=== PATIENT | female | born 1925 | race African-American/Black ===

== ENCOUNTER 2016-09-22 08:33 | Outpatient (CLI) | payer MEDICARE, OTHER ==
[2016-09-22 09:41] LABS: Anion Gap 11 mmol/L (10-20); BUN (Urea Nitrogen) 19 mg/dL (9.8-20.1); Calc. Creatinine Clearance 0 mL/min (70-130); Calcium 8.1 mg/dL (7.8-10.44); Carbon Dioxide 20 mmol/L (23-31); Cardiac Risk 3.5 (Less than 4.5); Chloride 114 mmol/L (98-107); Cholesterol 97 mg/dL (< 200 Desired); Estimated GFR-MDRD 70; Glucose 93 mg/dL (83-110); HDL Cholesterol 28 mg/dL (>60 Neg Risk); LDL Cholesterol, Calculated 60 mg/dL; Potassium 4.2 mmol/L (3.5-5.1); Sodium 141 mmol/L (136-145); Triglycerides 47 mg/dL (Less than 150)
[2016-09-22 09:45] LABS: Hemoglobin A1c 5.7 % (4.0-6.0)
[2016-09-22 11:29] LABS: #Monocytes 0.4 thou/uL (0.11-0.59); #Neutrophils 3.3 thou/uL (1.40-6.50); %Basophils 0.3 % (0.0-1.0); %Eosinophils 0.7 % (0.0-10.0); %Lymphocytes 21.7 % (21.0-51.0); %Monocytes 7.7 % (0.0-10.0); %Neutrophils 69.7 % (42.0-75.0); Hemoglobin 6.3 g/dL (12.0-16.0); Hypochromia MODERATE=16-30 cells (100X) (0-5/hpf); MDiff Complete? YES; Mean Corpuscular Hemoglobin 23.6 pg (27.0-31.0); Mean Corpuscular Volume 78.8 fl (81.0-99.0); Mean Platelet Volume 8.1 fL (7.4-10.4); Microcytosis SLIGHT = 6-15 cells (100X) (0-5/hpf); Ovalocytes SLIGHT = 2-5 cells (100X) (0-1/hpf); Platelet Count 214 thou/uL (130-400); RBC Distribution Width 16.4 % (11.5-14.5); Red Blood Cell (RBC) Count 2.67 mill/uL (4.20-5.40); Reflex for Review?? NO; Target Cells SLIGHT = 2-5 cells (100X) (0-1/hpf); White Blood Cell (WBC) Count 4.7 thou/uL (4.8-10.8)
== END 2016-09-22 08:34 | disposition home or self-care (01) ==
LOC: NAV LABSP 08:33
PROVIDERS: ATTEND Internal Medicine
DX: E78.5 Hyperlipidemia, unspecified (principal); K59.00 Constipation, unspecified; E11.9 Type 2 diabetes mellitus without complications
CPT/HCPCS: 36415; 80048; 80061; 83036; 85025

== ENCOUNTER 2016-09-23 14:20 | Observation (INO) | payer MEDICARE, OTHER ==
[2016-09-23 15:48] VITALS: BMI 14.3
[2016-09-23] MEDS ORDERED: Guaifenesin DM 100-10/5 ML UDCUP PO PRN (16:59)
[2016-09-23] MEDS ORDERED: Acetaminophen 325 MG TAB PO PRN (16:59)
[2016-09-23] MEDS ORDERED: traMADol HCl 50 MG TAB PO PRN (16:59)
[2016-09-23] MEDS ORDERED: Ondansetron ODT 4 MG TAB PO PRN (16:59)
[2016-09-23] MEDS ORDERED: Bisacodyl 10 MG SUPP PR PRN (16:59)
[2016-09-23] MEDS ORDERED: Loperamide HCl 2 MG CAP PO PRN (16:59)
[2016-09-23 17:36] LABS: White Blood Cell (WBC) Count 4.7 thou/uL (4.8-10.8)
[2016-09-23 17:37] LABS: Hemoglobin 6.9 g/dL (12.0-16.0); Mean Corpuscular HGB CONC 30.3 g/dL (32.0-36.0); Mean Corpuscular Hemoglobin 23.8 pg (27.0-31.0); Mean Corpuscular Volume 78.6 fL (81.0-99.0); Mean Platelet Volume 8.1 fL (7.4-10.4); Platelet Count 246 thou/uL (130-400); RBC Distribution Width 16.8 % (11.5-14.5)
[2016-09-23 18:22] LABS: ALT (SGPT) 7 U/L (0-55); AST (SGOT) 11 U/L (5-34); Albumin 2.6 g/dL (3.4-4.8); Alkaline Phosphatase 65 U/L (40-150); Anion Gap 15 mmol/L (10-20); BUN (Urea Nitrogen) 18 mg/dL (9.8-20.1); Bilirubin, Total 0.2 mg/dL (0.2-1.2); Calc. Creatinine Clearance 20 mL/min (70-130); Calcium 8.3 mg/dL (7.8-10.44); Carbon Dioxide 19 mmol/L (23-31); Chloride 112 mmol/L (98-107); Estimated GFR-MDRD 70; Globulin 3.6 g/dL (2.4-3.5); Glucose 113 mg/dL (83-110); Potassium 4.6 mmol/L (3.5-5.1); Protein, Total 6.2 g/dL (5.8-8.1); Sodium 141 mmol/L (136-145)
[2016-09-23] MEDS: Famotidine 20 MG TAB PO SCH (20:44)
[2016-09-23] MEDS: Ascorbic Acid 500 mg Chewable Tablet PO SCH (20:44)
[2016-09-23] MEDS: Carvedilol 6.25 MG TAB PO SCH (20:45)
[2016-09-23] MEDS ORDERED: Non-Formulary Item 1 EACH (Amino Acids/Protein Hydrolys [Pro-Stat Awc Liquid Packet] 30 M PO SCH (21:00)
[2016-09-23] MEDS ORDERED: Atorvastatin Calcium 20 MG TAB PO SCH (21:00)
[2016-09-24 06:46] LABS: Hemoglobin 9.3 g/dL (12.0-16.0)
[2016-09-24] MEDS: Carvedilol 6.25 MG TAB PO SCH (08:55)
[2016-09-24] MEDS: Famotidine 20 MG TAB PO SCH (08:55)
[2016-09-24] MEDS: Ascorbic Acid 500 mg Chewable Tablet PO SCH (08:55)
[2016-09-24] MEDS ORDERED: Clopidogrel Bisulfate 75 MG TAB PO SCH (09:00)
[2016-09-24] MEDS ORDERED: Lisinopril 20 MG TAB PO SCH (09:00)
[2016-09-24 15:02] VITALS: BP 174/80; TEMP 98.8
== END 2016-09-24 16:15 ==
LOC: NAV ACUTE 14:20
PROVIDERS: ADMIT Internal Medicine; ATTEND Internal Medicine
PROC: 30233N1 Transfusion of Nonautologous Red Blood Cells into Peripheral Vein, Percutaneous Approach (ICD-10-PCS; 2016-09-23)
PROC: 30233N1 Transfusion of Nonautologous Red Blood Cells into Peripheral Vein, Percutaneous Approach (ICD-10-PCS; principal; 2016-09-24)
DX: D64.9 Anemia, unspecified (principal)
CPT/HCPCS: 36416; 36430; 80053; 85014; 85018; 85027; 86850; 86900; 86901; G0378; P9016

== ENCOUNTER 2016-10-06 19:59 | Inpatient (IN) | payer MEDICARE, OTHER ==
[2016-10-06 20:56] LABS: ALT (SGPT) Less than 6 U/L (0-55); AST (SGOT) 8 U/L (5-34); Albumin 2.5 g/dL (3.4-4.8); Alkaline Phosphatase 69 U/L (40-150); Anion Gap 15 mmol/L (10-20); BUN (Urea Nitrogen) 21 mg/dL (9.8-20.1); Bilirubin, Total 0.6 mg/dL (0.2-1.2); Calc. Creatinine Clearance 0 mL/min (70-130); Calcium 8.7 mg/dL (7.8-10.44); Carbon Dioxide 19 mmol/L (23-31); Chloride 112 mmol/L (98-107); Estimated GFR-MDRD 48; Globulin 3.5 g/dL (2.4-3.5); Glucose 120 mg/dL (83-110); Potassium 3.7 mmol/L (3.5-5.1); Sodium 142 mmol/L (136-145)
[2016-10-06 20:57] LABS: Bilirubin Negative (Negative); Blood, Urine Negative (Negative); Clarity Clear (Clear); Glucose, Urine (Dipstick) Negative (Negative); Leukocyte Negative (Negative); Nitrite Negative (Negative); Protein, Urine (Dipstick) 100 mg/dL (Neg-Trace); pH, Urine 5.5 (5.0-9.0)
[2016-10-06 21:01] LABS: Anisocytosis SLIGHT = 6-15 cells (100X) (0-5/hpf); Band 1 % (5-11); Hemoglobin 8.6 g/dL (12.0-16.0); Hypochromia SLIGHT = 6-15 cells (100X) (0-5/hpf); Large Platelets SLIGHT; Lymphocytes 11 % (21-51); MDiff Complete? YES; Mean Corpuscular HGB CONC 31.2 g/dL (32.0-36.0); Mean Corpuscular Hemoglobin 24.4 pg (27.0-31.0); Mean Platelet Volume 8.2 fL (7.4-10.4); Microcytosis SLIGHT = 6-15 cells (100X) (0-5/hpf); Monocytes 6 % (0-10); Neutrophil 81 % (42-75); PLT Morphology Comment Appears Adequate; Platelet Count 188 thou/uL (130-400); Poikilocytosis SLIGHT = 6-15 cells (100X) (0-5/hpf); Polychromasia SLIGHT = 2-3 cells (100X) (0-2/hpf); RBC Distribution Width 17.2 % (11.5-14.5); Red Blood Cell (RBC) Count 3.53 mill/uL (4.20-5.40); White Blood Cell (WBC) Count 5.9 thou/uL (4.8-10.8)
--- NOTE | 2016-10-06 21:02 | RAD ---
SINGLE VIEW OF THE CHEST: Indication: Cough and congestion. Comparison: 04-02-16 FINDINGS: There are patchy opacities within the left upper lobe which may reflect changes of pneumonia. Due to positioning, the patient's head and neck obscures the right upper lobe. No definite pleural effusio n is evident. Heart size is similar appearing. No definite acute osseous abnormalities are evident. There is healed deformity involving the proximal right humerus. IMPRESSION: 1. Patchy opacities within the left upper lobe may reflect changes of developing pneumonia. Radiogra phic follow up to resolution is recommended. 2. Limitations to the scan as above. POS: [facility]
[2016-10-06 21:03] LABS: Bacteria/HPF 2+ HPF (None Seen); RBC/HPF 0-3 HPF (0-3); WBC/HPF None Seen HPF (0-3)
[2016-10-06 23:05] VITALS: BMI 16.4
[2016-10-06] MEDS ORDERED: Acetaminophen 325 MG TAB PO PRN (23:32)
[2016-10-06] MEDS ORDERED: Bisacodyl 10 MG SUPP PR PRN (23:33)
[2016-10-06] MEDS ORDERED: Loperamide HCl 2 MG CAP PO PRN (23:37)
[2016-10-06] MEDS ORDERED: traMADol HCl 50 MG TAB PO PRN (23:40)
[2016-10-07 07:04] LABS: #Lymphocytes 0.6 thou/uL (1.20-3.40); #Monocytes 0.4 thou/uL (0.11-0.59); #Neutrophils 4.4 thou/uL (1.40-6.50); %Basophils 0.4 % (0.0-1.0); %Eosinophils 0.3 % (0.0-10.0); %Lymphocytes 10.6 % (21.0-51.0); %Monocytes 6.8 % (0.0-10.0); %Neutrophils 81.9 % (42.0-75.0); Hemoglobin 9.5 g/dL (12.0-16.0); Mean Corpuscular HGB CONC 30.5 g/dL (32.0-36.0); Mean Corpuscular Hemoglobin 24.3 pg (27.0-31.0); Mean Corpuscular Volume 79.7 fl (81.0-99.0); Mean Platelet Volume 7.8 fL (7.4-10.4); Platelet Count 155 thou/uL (130-400); RBC Distribution Width 17.6 % (11.5-14.5); Red Blood Cell (RBC) Count 3.89 mill/uL (4.20-5.40); White Blood Cell (WBC) Count 5.4 thou/uL (4.8-10.8)
[2016-10-07 07:20] LABS: Anion Gap 18 mmol/L (10-20); BUN (Urea Nitrogen) 23 mg/dL (9.8-20.1); Calc. Creatinine Clearance 22 mL/min (70-130); Calcium 8.7 mg/dL (7.8-10.44); Carbon Dioxide 20 mmol/L (23-31); Chloride 111 mmol/L (98-107); Estimated GFR-MDRD 47; Glucose 88 mg/dL (83-110); Potassium 4.6 mmol/L (3.5-5.1); Sodium 144 mmol/L (136-145)
[2016-10-07] MEDS ORDERED: Acetaminophen 325 MG TAB PO PRN (07:34)
[2016-10-07] MEDS ORDERED: Bisacodyl 10 MG SUPP PR PRN (07:38)
[2016-10-07] MEDS ORDERED: Loperamide HCl 2 MG CAP PO PRN (07:55)
[2016-10-07] MEDS: Ascorbic Acid 500 mg Chewable Tablet PO SCH ×2 (08:47→21:12)
[2016-10-07] MEDS: Carvedilol 6.25 MG TAB PO SCH ×2 (08:47→21:12)
[2016-10-07] MEDS: Multivitamin W/ Minerals 1 TAB PO SCH (08:48)
[2016-10-07] MEDS: Lisinopril 20 MG TAB PO SCH (08:48)
[2016-10-07] MEDS: traMADol HCl 50 MG TAB PO PRN ×2 (08:51→21:12)
[2016-10-07] MEDS: Clopidogrel Bisulfate 75 MG TAB PO SCH (08:51)
[2016-10-07] MEDS: Milk Of Magnesia 30 ML UDCUP PO SCH ×2 (08:53→21:50)
[2016-10-07] MEDS: Famotidine 20 MG TAB PO SCH ×2 (08:53→21:13)
[2016-10-07] MEDS ORDERED: Multivitamins CHEW w/Iron Tablet PO SCH (09:00)
[2016-10-07] MEDS ORDERED: Clopidogrel Bisulfate 75 MG TAB PO SCH (09:00)
[2016-10-07] MEDS ORDERED: Carvedilol 3.125 MG TAB PO SCH (09:00)
[2016-10-07] MEDS ORDERED: Ascorbic Acid 500 mg Chewable Tablet PO SCH (09:00)
[2016-10-07] MEDS ORDERED: Lisinopril 20 MG TAB PO SCH (09:00)
[2016-10-07] MEDS ORDERED: Famotidine 20 MG TAB PO SCH ×2 (09:00)
[2016-10-07] MEDS ORDERED: Sodium Chloride 0.9% 10 ML ONE (17:48)
[2016-10-07] MEDS: Sodium Chloride 0.9% 1,000 ML IV SCH (17:49)
[2016-10-07] MEDS ORDERED: Simvastatin 40 MG TAB PO SCH (21:00)
[2016-10-07] MEDS: Atorvastatin Calcium 20 MG TAB PO SCH (21:13)
--- NOTE | 2016-10-08 00:12 | HP ---
DATE OF ADMISSION: 10/06/2016 HISTORY OF PRESENT ILLNESS: The patient is an 89-year-old black female with a history of poor oral intake who [facility] with an episode of coughing after eating and with the find ing of possible aspiration pneumonia on chest x-ray in the emergency room by ER physician. She was found to have normal white count, saturation, but did appear to be in some mild distress and had low grade fever. Her chest x-ray was read out by radiologist, is developing pneumonia. 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 Garnica and treated with wound care with offloading at the jail, but foul smelling odor is emanating from the wounds and there appears to be a pur ulent discharge. She has been eating fairly well. The patient has had a very poor appetite for the last several years. Family has refused PEG tube placement and been feeding her at the jail . She has also had recurrent admissions for urinary tract infection and also for recurrent anemia a nd dehydration with renal failure. The family again has refused colonoscopy and EGD, but has agreed to occasional transfusions, the last being several months ago. PAST MEDICAL HISTORY: Remarkable for ischemic heart disease in the past, but there is no evidence o f recurrent ischemia for the last several years, gastroesophageal reflux, type 2 diabetes with occas ional hypoglycemia. CURRENT MEDICATIONS: Include Tylenol 650 every 4 hours, vitamin C 500 twice daily, aspirin 81 daily , Dulcolax as needed, carvedilol 6.25 twice daily, Plavix 75 daily, Pepcid 20 twice daily, ferrous s ulfate 300 mg daily, lisinopril 20 daily, simvastatin 40 daily, tramadol as needed for pain. She has the above-mentioned history of allergy to PENICILLIN as being restricted from NSAIDs because of recurrent anemia secondary to GI bleed. PAST SURGICAL HISTORY: Positive for distant right hip open reduction internal fixation. 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 She has been told in the past that she is at risk for aspiration, but the patient's fa aniya understand this and wishes comfort feeding. SOCIAL HISTORY: She has been living in the jail for 13 years secondary to the inability to maintain ADLs. REVIEW OF SYSTEMS: Unobtainable. PHYSICAL EXAMINATION: GENERAL: Patient is an elderly black female who appears in no acute distress, awake, but aphasic, n ot responsive. VITAL SIGNS: Showed to have a temperature of 100.5, pulse 86, respirations 16, O2 sats 96%, blood p ressure 101/53. HEENT: Pupils are equal, round, and react to light and accommodation. Sclerae are anicteric. Conj unctivae pale. Oral mucous membranes well hydrated. NECK: Supple, no nodes or masses. JVP is not elevated. LUNGS: Clear. CARDIAC: Regular rhythm, no gallops or murmurs. ABDOMEN: Soft, nontender with no masses or organomegaly. SKIN/EXTREMITIES: Show the patient to be contracted both in the knees and hips. There are stage II to stage III decubitus over the lateral malleolus lateral foot and lateral fifth metatarsal with fo ul smelling purulent discharge, but no apparent pedal pulses are absent. NEUROLOGIC: Cranial nerves appear to be intact except for the possible dysphagia and aphasia, appea rs to be normal, sensation to pinprick. The patient does not move however, and is contracted. LABORATORY AND X-RAY FINDINGS: Show white count 5900, hematocrit 27, hemoglobin 8.6. Sodium 142, p otassium 3.7, chloride 112, bicarbonate 19, BUN 21, creatinine 1.27, glucose 120. Lactate is 1.1, a lbumin 2.5. Urinalysis within normal limits, only 4-6 squamous cells. Chest x-ray shows the above- mentioned left upper lobe infiltrate. ASSESSMENT: 1. Resolving left upper lobe infiltrate, most likely due to aspiration pneumonia, persistent dyspha jevon and expressive aphasia secondary to old CVA. Comfort feeding per the patient's family request. 2. Possible infection of stage II to III decubitus of the right foot. PLAN: Wound culture silver dressing, offloading of the right foot. Continue Levaquin 500 IV daily. Continue feedings per family, started on normal saline at 75 an hour, repeat base met profile in t he a.m. The patient is not to be resuscitated at family's request.
[2016-10-08] MEDS: Sodium Chloride 0.9% 1,000 ML IV SCH ×2 (06:03→20:40)
[2016-10-08] MEDS: Ondansetron HCl/PF 4 MG/2 ML Vial IVP PRN (08:20)
[2016-10-08] MEDS: Acetaminophen 325 MG TAB PO PRN (08:22)
[2016-10-08] MEDS: Multivitamin W/ Minerals 1 TAB PO SCH (08:23)
[2016-10-08] MEDS: Ascorbic Acid 500 mg Chewable Tablet PO SCH ×2 (08:23→21:41)
[2016-10-08] MEDS: Lisinopril 20 MG TAB PO SCH (08:23)
[2016-10-08] MEDS: Famotidine 20 MG TAB PO SCH ×2 (08:23→21:41)
[2016-10-08] MEDS: Carvedilol 6.25 MG TAB PO SCH ×3 (08:23→21:42)
[2016-10-08] MEDS: Clopidogrel Bisulfate 75 MG TAB PO SCH (08:23)
[2016-10-08] MEDS: traMADol HCl 50 MG TAB PO PRN (08:24)
--- NOTE | 2016-10-08 21:03 | PRG ---
DATE OF SERVICE: 10/08/2016 SUBJECTIVE: Patient feels same, awake, not responsive verbally, been eating for the family appears to be in no distress. OBJECTIVE: Vital signs show Accu-Cheks range from 86-130, blood pressure is 140/67, temperature 97. 5, pulse 74, respirations 18, O2 sats 98%. Lungs are clear. Cardiac examination shows regular rhyt hm. Right foot is bandaged with stage III decubitus lateral aspect to the foot. Physical therapy and wound care may feels that this is something that is not going to resolve and re commends being seen by Wound Care physician and possible amputation. ASSESSMENT: 1. Stage III decubitus of right foot. We will discuss with family and surgical referral, wound car e referral, and possible CT angio. 2. Resolving aspiration pneumonia with stable vital signs on Levaquin. 3. Stable cerebrovascular accident with dysphagia and aphasia and contractures. PLAN: Discussed with family, transfer [facility] for surgical consul and/or Wound Care consult.
[2016-10-08] MEDS: Atorvastatin Calcium 20 MG TAB PO SCH (21:40)
[2016-10-09] MEDS: Multivitamin W/ Minerals 1 TAB PO SCH (08:59)
[2016-10-09] MEDS: Ascorbic Acid 500 mg Chewable Tablet PO SCH ×2 (08:59→20:58)
[2016-10-09] MEDS: traMADol HCl 50 MG TAB PO PRN ×3 (08:59→20:59)
[2016-10-09] MEDS: Famotidine 20 MG TAB PO SCH ×2 (08:59→20:58)
[2016-10-09] MEDS: Clopidogrel Bisulfate 75 MG TAB PO SCH (08:59)
[2016-10-09] MEDS: Acetaminophen 325 MG TAB PO PRN ×2 (08:59→20:58)
[2016-10-09] MEDS: Lisinopril 20 MG TAB PO SCH (09:00)
[2016-10-09] MEDS: Sodium Chloride 0.9% 1,000 ML IV SCH (09:01)
[2016-10-09] MEDS: Carvedilol 6.25 MG TAB PO SCH (09:01)
[2016-10-09] MEDS: Ondansetron HCl/PF 4 MG/2 ML Vial IVP PRN (09:16)
[2016-10-09] MEDS: Atorvastatin Calcium 20 MG TAB PO SCH (20:58)
[2016-10-10] MEDS: Sodium Chloride 0.9% 1,000 ML IV SCH ×2 (04:46→14:11)
--- NOTE | 2016-10-10 07:26 | PRG ---
DATE OF SERVICE: 10/10/2016 Ms. Collado is an 89-year-old elderly black female from [facility] that apparently aspirated and was found to have a left upper lobe pneumonia. She also has a history of poor oral intake secondary to some aphasia, increasing dementia and old cerebrovascular accident. VITAL SIGNS: Vital signs this morning reveal blood pressure is 120/67, pulse 77 , respirations 20, O2 sat 95% on 2 liters, temperature max of 96.7. LABORATORY STUDIES: Last laboratory on 10/07/2016 revealed a white count 5400 with hemoglobin 9.5, hematocrit 31.1, platelet count 155,000. Her last electrolytes on 10/07/2016 reveal sodium 144, potassium 4.6, chloride 111, carbon dioxide 20 with a BUN of 23, creatinine 1.29. GFR was 47. Point of care sugars was 130. She did have some labs this morning, her creatinine is noted to be much improved at 1.12 and her GFR has increased from 47 to 55. PHYSICAL EXAMINATION: GENERAL: This is a well-developed, well-nourished, elderly, nonverbal black female in no apparent distress at this time. HEENT: Reveals normocephalic, nontraumatic cranium. Pupils are equally round and reactive. Nose and throat somewhat dry. NECK: Supple, without masses, nodes or bruits. No jugular venous distention is noted. LUNGS: Clear but shallow. CARDIOVASCULAR: Reveals a regular rate and rhythm without any murmurs, gallops or rubs. ABDOMEN: Scaphoid, soft, nontender, without organomegaly. No rebound or guarding is noted. : Deferred. EXTREMITIES: Reveal hips and knees are contracted. The patient's right foot reveals stage 3 or unstageable decubitus over the lateral malleolus in the lateral fifth metatarsal with a history of purulent drainage. IMPRESSION: 1. Aspiration pneumonia. 2. Persistent dysphagia and expressive aphasia secondary to an old cerebrovascular accident and the patient's family requests no PEG tube feedings and comfort feedings. The patient's family does feed her. 3. Decubitus to the right foot, probably severe PVD and infected. 4. Ischemic heart disease. 5. Type 2 diabetes. 6. Gastroesophageal reflux. 7. PENICILLIN allergy, so therefore she is on Levaquin. 8. Aphasia and dysphagia secondary to cerebrovascular accident. 9. Increasing dementia. 10. Severe PVD, scheduled for MRA today. PLAN: 1. Dr. Brown has her scheduled for a surgical consultation and Wound Care consult in [place], not sure exactly when that is scheduled for. 2. Continue present IV antibiotics. 3. Continue with cautious feedings. 4. Continue wound care. 5. Continue decubitus precautions. 6. Continue DVT and stress ulcer prophylaxis. 7. Transfer for consultations whenever they are scheduled. 8. Awaiting MRA results so we can determine the future course of therapy. MTDD
[2016-10-10] MEDS: Clopidogrel Bisulfate 75 MG TAB PO SCH (08:35)
[2016-10-10] MEDS: traMADol HCl 50 MG TAB PO PRN (08:36)
[2016-10-10] MEDS: Carvedilol 6.25 MG TAB PO SCH ×2 (08:37→22:28)
[2016-10-10] MEDS: Lisinopril 20 MG TAB PO SCH (08:38)
[2016-10-10] MEDS: Famotidine 20 MG TAB PO SCH ×2 (08:38→22:29)
[2016-10-10] MEDS: Multivitamin W/ Minerals 1 TAB PO SCH (08:38)
[2016-10-10] MEDS: Ascorbic Acid 500 mg Chewable Tablet PO SCH ×2 (08:40→22:29)
[2016-10-10] MEDS ORDERED: Iopamidol 370 76% 100 ML VIAL ONE (09:00)
[2016-10-10] MEDS ORDERED: Sodium Chloride 0.9% 10 ML ONE (09:30)
--- NOTE | 2016-10-10 12:47 | CT ---
CTA OF THE PELVIS WITH BILATERAL LOWER EXTREMITY RUNOFF: HISTORY: History of decubitus ulcerations involving both heels. CONTRAST: 70 cc of Omnipaque 300 was administered. It was suspected that 60 cc of contrast extravasated. Loan quate opacification is seen within the vasculature. TECHNIQUE: Multiple CTA images were obtained of the pelvis and bilateral lower extremities. Three-D reformatte d images were constructed from the raw data. FINDINGS: There is complete occlusion of the right internal iliac artery with some reconstitution of flow of distal internal iliac branches likely through collateralization. There is prominent atherosclerotic irregularity in right external iliac artery and right common femo ral artery. The right common femoral bifurcation is patent. The proximal right superficial femoral artery demonstrates high-grade stenosis. There is complete occlusion at the level of the mid right superficial femoral artery. There is patchy reconstitution seen at the level of the distal superfi cial femoral artery likely through collaterals. There are multifocal areas of high-grade stenosis i nvolving the distal right superficial femoral artery and proximal popliteal artery. There is more r econstitution of flow seen at the mid popliteal artery. There is complete occlusion of the anterior tibial artery. There is high-grade multifocal stenosis involving the peroneal and posterior tibial arteries bilaterally. There is single-vessel runoff at the level of the ankle from the posterior t ibial artery; however, the flow within the right posterior tibial artery is highly diminutive. Ther e is decubitus ulceration involving the posterior right heel. There is prominent soft tissue swelli ng of the foot. There is prominent demineralization of the right lower extremity. There is prominent atherosclerotic plaque involving the distal left common iliac artery. There is c omplete occlusion of the left internal iliac artery with reconstitution of some of the distal vessel s through collaterals. There is prominent atherosclerotic irregularity to the left external iliac a rtery. There is complete occlusion of the left SFA at its origin. The profunda femoral artery is p atent. There is reconstitution at the level of the left popliteal artery; however, there are high-g rade multifocal areas of stenosis of the left popliteal artery. There is prominent atherosclerotic irregularity of the trifurcation. There is complete occlusion of the left anterior tibial artery. There is prominent atherosclerotic irregularity and multifocal stenosis involving the posterior tibi al and peroneal trunks. There is complete occlusion of the posterior tibial artery at the level of the mid left foreleg. Peroneal artery appears to enhance to the level of the distal foreleg. The f oot is not included within the entire field of view. There is prominent edema seen within both lower extremity subcutaneous tissues, right greater than l eft. There is prominent atrophy of the musculature of both lower extremities. There is a Harmon catheter within a decompressed bladder. There is circumferential wall thickening i nvolving the rectum which is nonspecific. There is postsurgical change involving the descending col on and sigmoid junction. There is mild free fluid within the pelvis. There is postsurgical change of a right hip fracture instrumentation. There is diffuse osteopenia. IMPRESSION: 1. Multifocal high-grade stenoses and complete occlusion of the superficial femoral arteries bilate rally. There is reconstitution of flow seen on the right at the level of the distal right superfici al femoral artery and on the left within the popliteal artery; however, there are multifocal areas o f high-grade stenosis and near occlusion involving the popliteal arteries bilaterally. There is com plete occlusion of the right anterior tibial artery. There is occlusion of the distal right peronea l artery proximal to the ankle. There is a single-vessel runoff to the right lower extremity involv ing the posterior tibial artery; however, the vessel is highly diminutive. There is complete occlus ion of the left anterior tibial artery proximally. The left posterior tibial artery is occluded at the mid left foreleg. The peroneal artery does enhance to the level of the ankle. 2. Anasarca with mild free fluid. 3. Proctitis. 4. Harmon catheter. 5. Prominent soft tissue wounds of the right lower extremity, particularly of the heel where there is a prominent decubitus ulceration. POS: [facility]
--- NOTE | 2016-10-10 17:41 | PRG ---
DATE OF SERVICE: 10/10/2016 SUBJECTIVE: The patient is awake and alert, appears to be in no distress, tolerated CT angio well. OBJECTIVE: VITAL SIGNS: Blood pressure is 152/72, temperature 96, pulse 64, respirations 20, O2 sats 98% on 2 liters. LUNGS: Do show a few rales in the bases. CARDIAC: Shows regular rhythm. ABDOMEN: Soft and nontender. RADIOLOGIC DATA: X-ray today did show CT angio with multiple high-grade stenosis, complete occlusio n of superficial femoral arteries and also involving the popliteal arteries, complete occlusion of t he anterior tibial artery with distal peroneal artery. ASSESSMENT: 1. Severe peripheral vascular disease with arterial insufficiency causing poorly healing arterial u lcer. 2. Old cerebrovascular accident with aphasia and dysphagia with resolving aspiration pneumonia. PLAN: Discussed poor prognosis with family and will discuss with vascular surgeon to have him look at angiogram and see if there is any possible remedy, but feels like the patient will not be amenabl e to stand and will not possibly heal BKA.
[2016-10-10] MEDS: Atorvastatin Calcium 20 MG TAB PO SCH (22:29)
[2016-10-10] MEDS: traMADol HCl 50 MG TAB PO SCH (22:29)
[2016-10-11] MEDS: Milk Of Magnesia 30 ML UDCUP PO PRN (09:20)
[2016-10-11] MEDS: traMADol HCl 50 MG TAB PO SCH ×2 (09:21→21:50)
[2016-10-11] MEDS: Multivitamin W/ Minerals 1 TAB PO SCH (09:21)
[2016-10-11] MEDS: Famotidine 20 MG TAB PO SCH ×2 (09:23→21:50)
[2016-10-11] MEDS: Ascorbic Acid 500 mg Chewable Tablet PO SCH ×2 (09:23→21:49)
[2016-10-11] MEDS: Clopidogrel Bisulfate 75 MG TAB PO SCH (09:23)
[2016-10-11] MEDS: Carvedilol 6.25 MG TAB PO SCH ×2 (09:24→21:49)
[2016-10-11] MEDS: Lisinopril 20 MG TAB PO SCH (09:24)
[2016-10-11] MEDS: Atorvastatin Calcium 20 MG TAB PO SCH (21:50)
[2016-10-11] MEDS: Acetaminophen 325 MG TAB PO PRN (21:50)
[2016-10-11] MEDS ORDERED: Sodium Chloride 0.9% 10 ML ONE (22:11)
--- NOTE | 2016-10-12 01:29 | PRG ---
DATE OF SERVICE: 10/11/2016 DATE OF ADMISSION: 10/06/2016 HISTORY OF PRESENT ILLNESS: Ms. Collado is an 89-year-old black [facility] hat aspir[facility] and was found to have left upper lobe pneumonia. She has a history of poor oral intak e secondary to aphasia and dementia and old CVA. She has had significant problems with peripheral vascular disease and actually had an MRA done yeste rday, which showed significant occlusions and stenosis. She is awake, but poorly responsive this mo rning. She has no complaints this morning. PHYSICAL EXAMINATION: VITAL SIGNS: Reveals blood pressure this morning, elevated at 206/93, she will be receiving some cl onidine. Pulse 80, respirations 20, and O2 saturation is 95% to 100%. T-max 98.6. GENERAL: This is a very thin elderly cachectic black female, in no apparent distress, resting quiet ly in her bed. HEENT: Reveals normocephalic and nontraumatic cranium. Pupils are somewhat round and reactive. No se and throat are somewhat dry. NECK: Supple, without masses, nodes, or bruits. No jugular venous distention noted. Throat dry. LUNGS: Appear clear, very distant shallow. CARDIOVASCULAR: Heart reveals a regular rate and rhythm without murmurs, gallops, or rubs. ABDOMEN: Scaphoid, soft, and nontender without organomegaly, normal bowel sounds are noted. No geoffrey ound or guarding is noted. GENITOURINARY EXAMS: Deferred. Hips and knees were retracted, upper extremities were retracted, ri ght foot again reveals a stage 3 decubitus lateral malleolus and lateral fifth metatarsal with histo ry of purulent drainage. 1. The patient's MRA or lower extremity CTA reveals complete occlusion of the right internal iliac with some reconstitution of flow to the distal internal iliac rashes likely through the collateraliz ation. 2. Multifocal high grade stenosis in complete occlusion of superficial femoral arteries bilaterally . 3. Occlusion of the right distal peroneal and artery proximal to the ankle. 4. Single vessel runoff, the right lower extremity involving posterior tibial artery; however, the vessels are diminutive. 5. Complete occlusion of the left anterior tibial artery proximally and the left posterior tibial a rtery was occluded at the mid leg, foreleg area. 6. The peroneal artery does enhance to the level of the ankle. 7. Anasarca with mild free fluid. 8. Proctitis. 9. Harmon catheter. 10. Paroxysmal soft tissue wound to the right lower extremity, particularly of the heel where there is problems with decubitus ulceration. ASSESSMENT: 1. Severe peripheral vascular disease with poor arterial insufficiency, most likely is the reason f or no healing. 2. Old cerebrovascular accident with aphasia and dysphasia. 3. Resolving aspiration pneumonia. 4. Decubitus of the right foot with severe PVD. 5. Ischemic heart disease. 6. Diabetes type 2. 7. Gastroesophageal reflux. 8. PENICILLIN allergy. 9. Aphasia and dysphagia secondary to cerebrovascular accident. 10. Increasing dementia. PLAN: 1. Continue present IV antibiotics. 2. Continue cautious feedings. Continue wound care. 3. Continue decubitus care. 4. Continue DVT and stress ulcer prophylaxis. 5. We will adjust the patient's poor prognosis with the family when they come in.
[2016-10-12] MEDS: Carvedilol 6.25 MG TAB PO SCH ×2 (08:40→21:42)
[2016-10-12] MEDS: Multivitamin W/ Minerals 1 TAB PO SCH (09:05)
[2016-10-12] MEDS: Ascorbic Acid 500 mg Chewable Tablet PO SCH ×2 (09:05→21:42)
[2016-10-12] MEDS: Famotidine 20 MG TAB PO SCH ×2 (09:05→21:42)
[2016-10-12] MEDS: traMADol HCl 50 MG TAB PO SCH ×2 (09:05→21:42)
[2016-10-12] MEDS: Clopidogrel Bisulfate 75 MG TAB PO SCH (09:10)
[2016-10-12] MEDS: Lisinopril 20 MG TAB PO SCH (09:42)
[2016-10-12] MEDS: Milk Of Magnesia 30 ML UDCUP PO PRN (09:45)
[2016-10-12] MEDS: Atorvastatin Calcium 20 MG TAB PO SCH (21:42)
--- NOTE | 2016-10-13 01:17 | PRG ---
DATE OF SERVICE: 10/12/2016 HISTORY OF PRESENT ILLNESS: The patient is a very pleasant 83-year-old white female that was transferred from [facility] for aspiration pneumonia and found to have left upper lobe pneumonia. She has a history of poor oral intake secondary to aphasia and dementia, and an old CVA. She has also significant peripheral vascular disease and actually had a CTA done on Thursday. She had significant occlusions and stenosis. There was a niece in the room. I did discuss that with her, but I have not had time to call the neurosurgeons over the weekend. She is basically nonverbal, looks around, will open her mouth for food and her niece is feeding her ice cream with Ensure. There are no complaints at this time. PHYSICAL EXAMINATION: VITAL SIGNS: Blood pressure is 159/75, pulse 79, respirations 20, O2 sat 99%, temperature 97.8. PHYSICAL EXAMINATION: GENERAL: This is a well-developed, well-nourished, very pleasant, thin black female in no apparent distress at this time. HEENT: Reveals normocephalic, nontraumatic cranium. Pupils are equally round and reactive. Extraocular movements intact. Nose and throat are slightly dry. NECK: Supple without masses, nodes, or bruits. CHEST: Clear but very shallow. Distant breath sounds are heard. CARDIOVASCULAR: Reveals a regular rate and rhythm without murmurs, gallops, or rubs. ABDOMEN: Scaphoid, soft, nontender, without organomegaly. Normal bowel sounds are noted. No rebound or guarding is noted. GENITOURINARY: Deferred. EXTREMITIES: Reveal hips and knees were retracted. Upper extremities were also retracted. The patient has stage 3 decubitus lateral malleolus and lateral fifth metatarsal with history of purulent drainage. ASSESSMENT: 1. Severe peripheral vascular disease with poor arterial insufficiency, most likely the reason for nonhealing. 2. Old cerebrovascular accident with aphasia and dysphasia. 3. Resolving aspiration pneumonia. 4. Decubitus of the right foot with severe peripheral vascular disease and poor healing because of her circulation. 5. Ischemic heart disease. 6. Diabetes type 2. 7. Gastroesophageal reflux secondary to PENICILLIN allergy. 8. Aphasia. 9. Dysphagia, both secondary to cardiovascular accident. 10. Increasing dementia. PLAN: 1. Continue the present IV antibiotics. 2. Continue cautious feedings. 3. Continue wound care. 4. Continue decubitus care. 5. Continue deep vein thrombosis and stress ulcer prophylaxis. 6. Poor prognosis. 7. Dr. Brown mentioned he would talk with the vascular surgeons about reviewing her CTA. YESID
[2016-10-13 06:31] LABS: AST (SGOT) 8 U/L (5-34); Albumin 2.3 g/dL (3.4-4.8); Alkaline Phosphatase 53 U/L (40-150); Anion Gap 11 mmol/L (10-20); BUN (Urea Nitrogen) 22 mg/dL (9.8-20.1); Bilirubin, Total 0.5 mg/dL (0.2-1.2); Calc. Creatinine Clearance 22 mL/min (70-130); Calcium 8.8 mg/dL (7.8-10.44); Carbon Dioxide 20 mmol/L (23-31); Chloride 120 mmol/L (98-107); Estimated GFR-MDRD 47; Glucose 109 mg/dL (83-110); Potassium 3.8 mmol/L (3.5-5.1); Protein, Total 5.3 g/dL (5.8-8.1); Sodium 147 mmol/L (136-145)
[2016-10-13 06:45] LABS: Acanthocytes SLIGHT = 1-5 cells (100X) (None Seen); Anisocytosis SLIGHT = 6-15 cells (100X) (0-5/hpf); Band 1 % (5-11); Hemoglobin 7.8 g/dL (12.0-16.0); Hypochromia MODERATE=16-30 cells (100X) (0-5/hpf); Lymphocytes 14 % (21-51); MDiff Complete? YES; Mean Corpuscular HGB CONC 30.5 g/dL (32.0-36.0); Mean Corpuscular Hemoglobin 23.9 pg (27.0-31.0); Mean Corpuscular Volume 78.3 fl (81.0-99.0); Mean Platelet Volume 7.1 fL (7.4-10.4); Metamyelocyte 2 % (0-0); Monocytes 7 % (0-10); Myelocyte 1 % (0-0); Neutrophil 73 % (42-75); PLT Morphology Comment Appears Adequate; Platelet Count 150 thou/uL (130-400); RBC Distribution Width 18.2 % (11.5-14.5); Reactive Lymphocytes 2 % (0-10); Red Blood Cell (RBC) Count 3.27 mill/uL (4.20-5.40); White Blood Cell (WBC) Count 5.8 thou/uL (4.8-10.8)
[2016-10-13 08:00] LABS: ALT (SGPT) Less than 6 U/L (0-55)
[2016-10-13] MEDS: Multivitamin W/ Minerals 1 TAB PO SCH (08:49)
[2016-10-13] MEDS: Carvedilol 6.25 MG TAB PO SCH ×2 (08:49→21:47)
[2016-10-13] MEDS: Ascorbic Acid 500 mg Chewable Tablet PO SCH ×2 (08:49→21:47)
[2016-10-13] MEDS: Clopidogrel Bisulfate 75 MG TAB PO SCH (08:50)
[2016-10-13] MEDS: Famotidine 20 MG TAB PO SCH ×2 (08:50→21:47)
[2016-10-13] MEDS: Lisinopril 20 MG TAB PO SCH (08:51)
[2016-10-13] MEDS: traMADol HCl 50 MG TAB PO SCH ×2 (08:52→21:46)
--- NOTE | 2016-10-13 19:11 | PRG ---
DATE OF SERVICE: 10/13/2016 SUBJECTIVE: The patient is awake, but minimally responding to provider, but did attempt to eat for family members. Surgeon's office has been contacted and will review angio and has not returned call . OBJECTIVE: Shows blood pressure is stable at 140/90, afebrile, pulse 86, respirations 20, O2 sats 9 7%. LABORATORY DATA: White count 5800, hematocrit is 25, hemoglobin down to 7.8. Sodium 147, potassium 3.8, chloride 120, bicarbonate 20, BUN 22, creatinine 1.29. Laboratory shows also albumin is down to 2.3. Right foot shows foul smelling discharge from poorly healing ulcers on darkening right foot. ASSESSMENT: 1. Severe peripheral vascular disease with arterial ulcers and early gangrene. 2. Resolving pneumonia and aspiration pneumonia. 3. Recurrent anemia of unknown etiology with no previous evaluation. PLAN: Chest x-ray, CBC, base met in the a.m. Possibly give transfusion. Await results of surgeon for decision on possible stenting or amputation of the right leg.
[2016-10-13] MEDS: Atorvastatin Calcium 20 MG TAB PO SCH (21:47)
[2016-10-14 07:23] VITALS: BP 180/87; TEMP 97.2
--- NOTE | 2016-10-14 07:27 | RAD ---
CHEST 1 VIEW: Date: 10/14/16 HISTORY: Pneumonia. Follow-up. COMPARISON: 10/06/16. FINDINGS: The cardiac silhouette is magnified and upper limits of normal in size. Pulmonary vasculature remain s upper limits of normal. Nodular density at the left suprahilar level is unchanged in appearance. T he lobar consolidation is evident. Lung apices are partially obscured by the patient's chin. IMPRESSION: Persistent pulmonary vascular congestion and left suprahilar parenchymal nodule. No lobar consolidat ion is apparent. POS: [facility]
--- NOTE | 2016-10-14 08:48 | PRG ---
DATE OF SERVICE: 10/14/2016 SUBJECTIVE: The patient lying in bed, sleeping, resting through the night, but is appearing to be i n more discomfort particularly when the nurses change her wounds. OBJECTIVE: Shows her blood pressure is 180/87, O2 sats 94%, respirations 18, pulse 64, temperature 97. Laboratory show white count yesterday still at 5800, hemoglobin down; however, to 7.8, with hem atocrit 25. Discussed CT angio with Dr. Enciso who feels that there is probably no surgical remedy f or circulation in her leg and would agree that above knee amputation is the best remedy for her poor ly healing arterial ulcers. The ulcers appear to be becoming more necrotic and infected. There is a smelling discharge coming from the wounds and she is growing multiple organisms including E. coli, Staph and Enterococcus, which are resistant to the Levaquin the patient is on. Her IV has been inf iltrated and cannot be replaced and therefore, if her lungs are clear. Cardiac examination shows re gular rhythm. ASSESSMENT: 1. Peripheral vascular disease with poorly healing arterial with contamination on wounds, multiple organisms 2. Recurrent anemia, unknown etiology with no evaluation requested by family. PLAN: Discussed need for probable central line placement, IV antibiotics, blood transfusion and pro bable transfer [facility] for above the knee amputation as antibiotics will not heal these wounds because of poor circulation.
[2016-10-14] MEDS: Multivitamin W/ Minerals 1 TAB PO SCH (09:03)
[2016-10-14] MEDS: Famotidine 20 MG TAB PO SCH (09:03)
[2016-10-14] MEDS: Ascorbic Acid 500 mg Chewable Tablet PO SCH (09:03)
[2016-10-14] MEDS: Carvedilol 6.25 MG TAB PO SCH (09:03)
[2016-10-14] MEDS: Clopidogrel Bisulfate 75 MG TAB PO SCH (09:04)
[2016-10-14] MEDS: Lisinopril 20 MG TAB PO SCH (09:04)
[2016-10-14] MEDS: traMADol HCl 50 MG TAB PO SCH (09:05)
== END 2016-10-14 18:00 | disposition short-term general hospital (02) | DRG 177 ==
LOC: NAV ERS 19:59 → NAV ACUTE 22:14
PROVIDERS: ADMIT Internal Medicine; ATTEND Internal Medicine
DX: J69.0 Pneumonitis due to inhalation of food and vomit (principal); L89.893 Pressure ulcer of other site, stage 3; R64 Cachexia; I70.263 Atherosclerosis of native arteries of extremities with gangrene, bilateral legs; R13.10 Dysphagia, unspecified; F03.90 Unspecified dementia, unspecified severity, without behavioral disturbance, psychotic disturbance, mood disturbance, and anxiety; L97.819 Non-pressure chronic ulcer of other part of right lower leg with unspecified severity; L97.829 Non-pressure chronic ulcer of other part of left lower leg with unspecified severity; Z88.0 Allergy status to penicillin; I25.9 Chronic ischemic heart disease, unspecified; K21.9 Gastro-esophageal reflux disease without esophagitis; E11.9 Type 2 diabetes mellitus without complications; I69.320 Aphasia following cerebral infarction; I69.391 Dysphagia following cerebral infarction; I69.318 Other symptoms and signs involving cognitive functions following cerebral infarction; D64.9 Anemia, unspecified; K62.89 Other specified diseases of anus and rectum; J32.9 Chronic sinusitis, unspecified; Z66 Do not resuscitate
CPT/HCPCS: 36415; 36416; 71010; 80048; 80053; 81003; 81015; 82565; 83605; 85025; 87040; 87070; 87077; 87081; 87086; 87186; 87205; 94640; A4216; A4353; J1956; J2405; J7050; J7620

== ENCOUNTER 2016-10-20 15:33 | Inpatient (IN) | payer MEDICARE, OTHER, MEDICAID ==
[2016-10-20] MEDS ORDERED: Acetaminophen 325 MG TAB PO PRN (17:42)
[2016-10-20] MEDS ORDERED: Bisacodyl 10 MG SUPP PR PRN (17:42)
[2016-10-20] MEDS ORDERED: Loperamide HCl 2 MG CAP PO PRN (17:42)
[2016-10-20] MEDS ORDERED: Milk Of Magnesia 30 ML UDCUP PO PRN (17:42)
[2016-10-20] MEDS ORDERED: Famotidine 20 MG TAB PO SCH (21:00)
[2016-10-20] MEDS: Atorvastatin Calcium 20 MG TAB PO SCH (22:13)
[2016-10-20] MEDS: Ascorbic Acid 500 mg Chewable Tablet PO SCH (22:13)
[2016-10-20] MEDS: Carvedilol 6.25 MG TAB PO SCH (22:13)
[2016-10-20] MEDS ORDERED: Vancomycin HCl 750 MG VIAL IVPB SCH (23:00)
[2016-10-20] MEDS ORDERED: Sodium Chloride 0.9% 10 ML ONE (23:39)
[2016-10-20] MEDS: Vancomycin HCl 750 MG in Sodium Chloride 0.9% 250 ML 250 ML IVPB SCH (23:52)
[2016-10-21 06:15] LABS: Anion Gap 13 mmol/L (10-20); BUN (Urea Nitrogen) 20 mg/dL (9.8-20.1); Calc. Creatinine Clearance 21 mL/min (70-130); Calcium 8.3 mg/dL (7.8-10.44); Carbon Dioxide 21 mmol/L (23-31); Chloride 113 mmol/L (98-107); Estimated GFR-MDRD 49; Glucose 99 mg/dL (83-110); Sodium 144 mmol/L (136-145)
[2016-10-21 06:26] LABS: Hemoglobin 8.1 g/dL (12.0-16.0); Mean Corpuscular HGB CONC 30.5 g/dL (32.0-36.0); Mean Corpuscular Hemoglobin 23.5 pg (27.0-31.0); Mean Corpuscular Volume 77.1 fl (81.0-99.0); Mean Platelet Volume 7.6 fL (7.4-10.4); Platelet Count 213 thou/uL (130-400); RBC Distribution Width 18.3 % (11.5-14.5); Red Blood Cell (RBC) Count 3.43 mill/uL (4.20-5.40); White Blood Cell (WBC) Count 6.2 thou/uL (4.8-10.8)
[2016-10-21 06:29] LABS: Potassium 2.5 mmol/L (3.5-5.1)
--- NOTE | 2016-10-21 07:35 | HP ---
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 She has been found on CT angio to have diffuse disease and not to be a candidate for revascularization, but the family has refused amputation. She was therefore transferred to [facility] for wound care and antibiotics. The family had been informed that her prognosis is very poor and most likely terminal and if her w ounds do not heal and that she will not heal, most likely with this therapy, but they are wishing to do this. She is not to be resuscitated. She, as mentioned above, has history of cerebrovascular i nsufficiency with old stroke with difficulty talking and swallowing, but the family also has refused a PEG tube despite recent aspiration pneumonia. PAST MEDICAL HISTORY: Also remarkable for diabetes type 2 and hypertension. PAST SURGICAL HISTORY: Positive for right hip open reduction internal fixation. ALLERGIES: She is allergic to PENICILLIN. CURRENT MEDICATIONS: Include atorvastatin 20 nightly, carvedilol 6.25 twice daily, Plavix 75 daily, Pepcid 20 twice daily, ferrous sulfate 220 daily, hydrochlorothiazide 25 daily, lisinopril 20 daily , and has been started on vancomycin 750 daily. REVIEW OF SYSTEMS: Unobtainable. PHYSICAL EXAMINATION: GENERAL: Shows the patient is an elderly black female lying in bed in no distress. She slept well, but is taking pain medication routinely. VITAL SIGNS: Temperature 97.6, pulse 73, respirations 20, O2 saturation 92% on 2 liters, blood pres sure 171/77. HEENT: Pupils are equal, round, and react to light and accommodation. Sclerae are anicteric. Conj unctivae pale. Oral mucous membranes are well hydrated. NECK: Supple. JVP is not elevated. LUNGS: Show good breath sounds, no rales or rhonchi. CARDIAC: Regular rhythm. No gallops or murmurs. ABDOMEN: Soft and nontender with no masses or organomegaly. SKIN/EXTREMITIES: Shows the right foot bandaged, both legs contracted, there are absent popliteal p ulses bilaterally. NEUROLOGIC: The patient does not move any extremities except to pain, but does appear to move all e xtremities to pain. LABORATORIES: Show white count 6200, hematocrit 26, hemoglobin 8. Sodium 144, potassium 2.5, chlor dayana 113, bicarbonate 21, BUN 20, creatinine 1.24 up from 0.99 four days previously. ASSESSMENT: An 89-year-old black female with severe diffuse peripheral vascular disease and ischemi c ulcers of her right leg with refusal of family for amputation who was admitted for wound care and antibiotics. 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 She will be given a trial of wound care and antibiotics and will discuss further treatment with the family as they refus e surgical intervention. At this time, she is a DNR. They fully understand that she may not surviv e this. She will be kept comfortable with oral pain medicines. She has developed hypokalemia and s ome worsening acute on chronic renal failure with creatinine increasing from 0.99 to 1.24, potassium decreased from 3.4 to 2.5. We will therefore start her on normal saline with 40 of K at 50 an hour and oral K-Dur at 20 daily. We will continue her on her antihypertensives of carvedilol, but will discontinue hydrochlorothiazide and repeat base met profile in the a.m.
[2016-10-21] MEDS: Potassium Chloride 20 MEQ TAB PO SCH (08:10)
[2016-10-21] MEDS ORDERED: Hydrochlorothiazide 25 MG TAB PO SCH (09:00)
[2016-10-21] MEDS: Clopidogrel Bisulfate 75 MG TAB PO SCH (09:23)
[2016-10-21] MEDS: Lisinopril 20 MG TAB PO SCH (09:23)
[2016-10-21] MEDS: Pantoprazole 40 MG GRANULES PACKET PO SCH (09:23)
[2016-10-21] MEDS: NS 0.9% w/ 40 MEQ KCL 1,000 ML IV SCH (09:24)
[2016-10-21] MEDS: Ascorbic Acid 500 mg Chewable Tablet PO SCH ×2 (09:24→21:51)
[2016-10-21] MEDS: Carvedilol 6.25 MG TAB PO SCH ×2 (09:24→21:51)
[2016-10-21] MEDS: MINERALS PO SCH (09:27)
[2016-10-21] MEDS: MULTIVIT PO SCH (09:27)
[2016-10-21] MEDS: FERROUS FUM PO SCH (09:27)
[2016-10-21] MEDS: HYDROcodone/Acetaminophen 5/325 mg Tablet PO PRN ×2 (12:19→21:51)
[2016-10-21 14:28] VITALS: BMI 15.7
[2016-10-21] MEDS: Atorvastatin Calcium 20 MG TAB PO SCH (21:51)
[2016-10-21 22:29] LABS: Vancomycin, Trough 26.7 ug/mL
[2016-10-22] MEDS: Vancomycin HCl 750 MG in Sodium Chloride 0.9% 250 ML 250 ML IVPB SCH (01:56)
[2016-10-22] MEDS: NS 0.9% w/ 40 MEQ KCL 1,000 ML IV SCH ×2 (04:13→04:53)
[2016-10-22 07:25] LABS: Anion Gap 15 mmol/L (10-20)
[2016-10-22 07:35] LABS: BUN (Urea Nitrogen) 18 mg/dL (9.8-20.1); Calc. Creatinine Clearance 23 mL/min (70-130); Calcium 8.6 mg/dL (7.8-10.44); Carbon Dioxide 18 mmol/L (23-31); Chloride 118 mmol/L (98-107); Estimated GFR-MDRD 55; Glucose 88 mg/dL (83-110); Potassium 3.8 mmol/L (3.5-5.1); Sodium 147 mmol/L (136-145)
[2016-10-22] MEDS: Clopidogrel Bisulfate 75 MG TAB PO SCH (08:57)
[2016-10-22] MEDS: Lisinopril 20 MG TAB PO SCH (08:57)
[2016-10-22] MEDS: Potassium Chloride 20 MEQ TAB PO SCH (08:57)
[2016-10-22] MEDS: Pantoprazole 40 MG GRANULES PACKET PO SCH (08:57)
[2016-10-22] MEDS: Ascorbic Acid 500 mg Chewable Tablet PO SCH ×2 (08:57→20:36)
[2016-10-22] MEDS: Carvedilol 6.25 MG TAB PO SCH ×2 (08:58→20:37)
[2016-10-22] MEDS: MINERALS PO SCH (09:00)
[2016-10-22] MEDS: MULTIVIT PO SCH (09:00)
[2016-10-22] MEDS: FERROUS FUM PO SCH (09:00)
[2016-10-22] MEDS: HYDROcodone/Acetaminophen 5/325 mg Tablet PO PRN ×2 (09:14→20:43)
[2016-10-22] MEDS: Atorvastatin Calcium 20 MG TAB PO SCH (20:37)
[2016-10-22] MEDS ORDERED: Vancomycin HCl 500 MG VIAL ONE (23:30)
[2016-10-22] MEDS: Vancomycin HCl 500 MG in Sodium Chloride 0.9% 250 ML 250 ML IVPB SCH (23:43)
[2016-10-23] MEDS: NS 0.9% w/ 40 MEQ KCL 1,000 ML IV SCH (03:23)
[2016-10-23] MEDS: Pantoprazole 40 MG GRANULES PACKET PO SCH (08:23)
[2016-10-23] MEDS: Ascorbic Acid 500 mg Chewable Tablet PO SCH ×2 (08:23→20:12)
[2016-10-23] MEDS: Lisinopril 20 MG TAB PO SCH (08:23)
[2016-10-23] MEDS: Clopidogrel Bisulfate 75 MG TAB PO SCH (08:23)
[2016-10-23] MEDS: Potassium Chloride 20 MEQ TAB PO SCH (08:23)
[2016-10-23] MEDS: Carvedilol 6.25 MG TAB PO SCH ×2 (08:23→20:12)
[2016-10-23] MEDS: MULTIVIT PO SCH (08:24)
[2016-10-23] MEDS: FERROUS FUM PO SCH (08:24)
[2016-10-23] MEDS: MINERALS PO SCH (08:24)
[2016-10-23 10:15] LABS: Anion Gap 12 mmol/L (10-20); BUN (Urea Nitrogen) 16 mg/dL (9.8-20.1); Calc. Creatinine Clearance 28 mL/min (70-130); Calcium 8.7 mg/dL (7.8-10.44); Carbon Dioxide 21 mmol/L (23-31); Chloride 119 mmol/L (98-107); Estimated GFR-MDRD 68; Glucose 89 mg/dL (83-110); Potassium 4.8 mmol/L (3.5-5.1); Sodium 147 mmol/L (136-145)
[2016-10-23] MEDS: HYDROcodone/Acetaminophen 5/325 mg Tablet PO PRN (17:43)
[2016-10-23] MEDS: Atorvastatin Calcium 20 MG TAB PO SCH (20:16)
[2016-10-23] MEDS ORDERED: VANCOMYCIN HCL IVPB SCH (23:45)
[2016-10-23] MEDS ORDERED: SODIUM CHLORIDE 0.9% IVPB SCH (23:45)
[2016-10-24] MEDS: Vancomycin HCl 500 MG in Sodium Chloride 0.9% 250 ML 250 ML IVPB SCH (00:05)
[2016-10-24] MEDS: Potassium Chloride 20 MEQ TAB PO SCH (08:30)
[2016-10-24] MEDS: Lisinopril 20 MG TAB PO SCH (08:30)
[2016-10-24] MEDS: Ascorbic Acid 500 mg Chewable Tablet PO SCH ×2 (08:31→20:59)
[2016-10-24] MEDS: traMADol HCl 50 MG TAB PO PRN (08:31)
[2016-10-24] MEDS: Carvedilol 6.25 MG TAB PO SCH ×2 (08:32→20:58)
[2016-10-24] MEDS: Clopidogrel Bisulfate 75 MG TAB PO SCH (08:32)
[2016-10-24] MEDS: FERROUS FUM PO SCH (08:33)
[2016-10-24] MEDS: MINERALS PO SCH (08:33)
[2016-10-24] MEDS: Pantoprazole 40 MG GRANULES PACKET PO SCH (08:33)
[2016-10-24] MEDS: MULTIVIT PO SCH (08:33)
[2016-10-24] MEDS: Collagenase 250 UNITS/GM Ointment 30 GM TUBE TOP SCH (08:34)
--- NOTE | 2016-10-24 11:42 | PRG ---
DATE OF SERVICE: 10/23/2016 SUBJECTIVE: The patient appears to be more awake and alert at this time, is eating fairly well. Gina kwan is feeding most meals. OBJECTIVE: Shows her creatinine down 0.94, BUN 16, sodium 147, bicarb is 21, chloride 119, potassiu m 4.8. VITAL SIGNS: Vital signs show her blood pressure is 118/69, temperature 97.9, pulse 72, respiration s 18, O2 sats 99%. LUNGS: Clear. CARDIAC: Cardiac examination shows regular rhythm. Wound showed no change. ASSESSMENT: 1. Resolved hypokalemia and acute on chronic renal failure with IV fluids 2. Persistent severe peripheral vascular disease with arterial ulcers. 3. 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 Wound care. PLAN: Continue wound care. Discontinue IV fluids. Continue vancomycin. Check vancomycin trough l evel tomorrow.
--- NOTE | 2016-10-24 11:47 | PRG ---
DATE OF SERVICE: 10/22/2016 SUBJECTIVE: The patient is awake, responds to pain when wound is manipulated. She eats fair for th e family, but poorly for the hospital staff. OBJECTIVE: Shows her blood pressure is 148/70, pulse 58, respirations 20, O2 sats 96% on 2 liters. Laboratory shows sodium 144 yesterday, potassium 2.5, chloride 113, bicarbonate 21, BUN 20, creatini ne 1.24, glucose 99, calcium 8.3. After being given 500 mL of normal saline and then switched to D5 half normal saline with 40 of K sodium this morning is 147, potassium 3.8, chloride 118, bicarbonat e 18, BUN is 18, creatinine is down to 1.13. Lungs are still clear. Cardiac examination shows regu lar rhythm. Abdomen is soft and nontender. Right foot shows persistent poorly healing ulcers. Van comycin trough level toxic the previous evening on 750 q.24 h. and was changed by Pharmacy to 500 q. 24 h with a repeat trough level on 10/24/2016. ASSESSMENT: Severe peripheral vascular disease with arterial ulcers of right foot with methicillin- resistant Staphylococcus aureus colonization as well as Escherichia coli colonization on vancomycin and has had dose titrated by pharmacy. Physical Therapy and Wound Care is doing wound care. PLAN: Continue conservative care with IV antibiotics and wound care, but also continue IV fluids fo r 1 more day.
--- NOTE | 2016-10-24 11:50 | PRG ---
DATE OF SERVICE: 10/24/2016 SUBJECTIVE: The patient feels well. Awake and alert, visiting with the family. She has grimace on face when wound is manipulated. It has been recently bandaged and objective pictures show no real change. . Cultures returned MRSA, but also E. coli sensitive to sulfa drugs. As the patient has no history of allergies to sulfa. She is eating well. Family however, wishes to discuss [facility] and case management consultation. OBJECTIVE: Blood pressure is 122/58, pulse 70, temperature 97.7, respirations 20, O2 sats 99% on 2 liters. ASSESSMENT: Severe peripheral vascular disease. Arterial ulcers colonized with E. coli and methici llin-resistant Staphylococcus aureus on vancomycin with trough level today. Will start Bactrim-DS suspension 2 teaspoons twice daily for Escherichia coli. We will continue to have the family feed t he patient. We will check base met profile again in several days. Vancomycin trough today.
[2016-10-24] MEDS: Atorvastatin Calcium 20 MG TAB PO SCH (20:59)
[2016-10-24 22:28] LABS: Vancomycin, Trough 20.5 ug/mL
[2016-10-25] MEDS: Vancomycin HCl 500 MG in Sodium Chloride 0.9% 250 ML 250 ML IVPB SCH ×2 (01:12→23:58)
[2016-10-25] MEDS ORDERED: VANCOMYCIN HCL IVPB SCH ×2 (01:30→23:30)
[2016-10-25] MEDS ORDERED: SODIUM CHLORIDE 0.9% IVPB SCH ×2 (01:30→23:30)
[2016-10-25] MEDS: Potassium Chloride 20 MEQ TAB PO SCH (08:00)
[2016-10-25] MEDS: Ascorbic Acid 500 mg Chewable Tablet PO SCH ×2 (09:17→20:37)
[2016-10-25] MEDS: Pantoprazole 40 MG GRANULES PACKET PO SCH (09:17)
[2016-10-25] MEDS: Carvedilol 6.25 MG TAB PO SCH ×2 (09:17→20:37)
[2016-10-25] MEDS: Lisinopril 20 MG TAB PO SCH (09:18)
[2016-10-25] MEDS: Clopidogrel Bisulfate 75 MG TAB PO SCH (09:18)
[2016-10-25] MEDS: MINERALS PO SCH (09:19)
[2016-10-25] MEDS: FERROUS FUM PO SCH (09:19)
[2016-10-25] MEDS: MULTIVIT PO SCH (09:19)
[2016-10-25] MEDS: Collagenase 250 UNITS/GM Ointment 30 GM TUBE TOP SCH (09:20)
[2016-10-25] MEDS: traMADol HCl 50 MG TAB PO PRN (15:18)
[2016-10-25] MEDS: Atorvastatin Calcium 20 MG TAB PO SCH (20:37)
[2016-10-26] MEDS: Potassium Chloride 20 MEQ TAB PO SCH (08:00)
[2016-10-26] MEDS: Clopidogrel Bisulfate 75 MG TAB PO SCH (09:07)
[2016-10-26] MEDS: Pantoprazole 40 MG GRANULES PACKET PO SCH (09:07)
[2016-10-26] MEDS: Ascorbic Acid 500 mg Chewable Tablet PO SCH ×2 (09:07→21:41)
[2016-10-26] MEDS: Carvedilol 6.25 MG TAB PO SCH ×2 (09:08→21:41)
[2016-10-26] MEDS: Lisinopril 20 MG TAB PO SCH (09:08)
[2016-10-26] MEDS: MINERALS PO SCH (09:09)
[2016-10-26] MEDS: FERROUS FUM PO SCH (09:09)
[2016-10-26] MEDS: MULTIVIT PO SCH (09:09)
[2016-10-26] MEDS: Collagenase 250 UNITS/GM Ointment 30 GM TUBE TOP SCH (09:10)
--- NOTE | 2016-10-26 10:57 | PRG ---
DATE OF SERVICE: 10/26/2016 SUBJECTIVE: Ms. Collado is resting comfortably, not in any distress, discussed with nursing and no c oncerns. OBJECTIVE: VITAL SIGNS: She is afebrile, heart rate is 69, respirations 18, blood pressure 140/67, oxygen satu ration is 95%. CARDIOVASCULAR SYSTEM: S1, S2 plus. RESPIRATORY SYSTEM: Normal vesicular breath sounds. ABDOMEN: Soft, nontender, bowel sounds heard in all quadrants. EXTREMITIES: Without cyanosis or clubbing. IMPRESSION: 1. Severe peripheral vascular disease with arterial ulcers growing E. coli and methicillin-resistan t Staphylococcus aureus. 2. Diabetes mellitus type 2. 3. Hypertension. 4. History of cerebrovascular accident. PLAN: 1. Continue antibiotics. 2. Supportive care. 3. Nutritional support. 4. Routine laboratory values. 5. Poor long-term prognosis. 6. Dr. Brown back tonight.
[2016-10-26] MEDS: HYDROcodone/Acetaminophen 7.5/325 mg Tablet PO PRN (16:23)
[2016-10-26] MEDS: traMADol HCl 50 MG TAB PO PRN (21:40)
[2016-10-26] MEDS: Atorvastatin Calcium 20 MG TAB PO SCH (21:41)
[2016-10-26] MEDS ORDERED: VANCOMYCIN HCL IVPB SCH (23:00)
[2016-10-26] MEDS ORDERED: SODIUM CHLORIDE 0.9% IVPB SCH (23:00)
[2016-10-26 23:58] LABS: Vancomycin, Trough 20.3 ug/mL
[2016-10-27] MEDS: Vancomycin HCl 500 MG in Sodium Chloride 0.9% 100 ML IVPB SCH (01:01)
[2016-10-27] MEDS: Vancomycin HCl 500 MG in Sodium Chloride 0.9% 250 ML 250 ML IVPB SCH (01:05)
[2016-10-27 06:05] LABS: Anion Gap 11 mmol/L (10-20); BUN (Urea Nitrogen) 15 mg/dL (9.8-20.1); Calc. Creatinine Clearance 27 mL/min (70-130); Calcium 8.7 mg/dL (7.8-10.44); Carbon Dioxide 18 mmol/L (23-31); Chloride 121 mmol/L (98-107); Estimated GFR-MDRD 64; Glucose 83 mg/dL (83-110); Potassium 3.4 mmol/L (3.5-5.1); Sodium 147 mmol/L (136-145)
[2016-10-27 06:14] LABS: Band 2 % (5-11); Bite Cells SLIGHT = 2-5 cells (100X) (0-1/hpf); Elliptocytes SLIGHT = 2-5 cells (100X) (0-1/hpf); Eosinophils 2 % (0-10); Hemoglobin 7.5 g/dL (12.0-16.0); Lymphocytes 11 % (21-51); MDiff Complete? YES; Mean Corpuscular HGB CONC 29.6 g/dL (32.0-36.0); Mean Corpuscular Hemoglobin 23.2 pg (27.0-31.0); Mean Corpuscular Volume 78.4 fl (81.0-99.0); Mean Platelet Volume 8.8 fL (7.4-10.4); Monocytes 3 % (0-10); Neutrophil 80 % (42-75); PLT Morphology Comment Appears Adequate; Platelet Count 164 thou/uL (130-400); RBC Distribution Width 18.9 % (11.5-14.5); Reactive Lymphocytes 2 % (0-10); Red Blood Cell (RBC) Count 3.22 mill/uL (4.20-5.40); White Blood Cell (WBC) Count 4.6 thou/uL (4.8-10.8)
[2016-10-27] MEDS: Potassium Chloride 20 MEQ TAB PO SCH (09:00)
[2016-10-27] MEDS: Pantoprazole 40 MG GRANULES PACKET PO SCH (09:01)
[2016-10-27] MEDS: Carvedilol 6.25 MG TAB PO SCH ×2 (09:01→20:55)
[2016-10-27] MEDS: Clopidogrel Bisulfate 75 MG TAB PO SCH (09:01)
[2016-10-27] MEDS: Ascorbic Acid 500 mg Chewable Tablet PO SCH ×2 (09:01→20:55)
[2016-10-27] MEDS: Lisinopril 20 MG TAB PO SCH (09:01)
[2016-10-27] MEDS: Collagenase 250 UNITS/GM Ointment 30 GM TUBE TOP SCH (09:50)
[2016-10-27] MEDS: MINERALS PO SCH (11:22)
[2016-10-27] MEDS: FERROUS FUM PO SCH (11:22)
[2016-10-27] MEDS: MULTIVIT PO SCH (11:22)
[2016-10-27] MEDS: HYDROcodone/Acetaminophen 5/325 mg Tablet PO PRN (14:46)
[2016-10-27] MEDS: Atorvastatin Calcium 20 MG TAB PO SCH (20:55)
[2016-10-28] MEDS: Vancomycin HCl 500 MG in Sodium Chloride 0.9% 100 ML IVPB SCH (02:02)
[2016-10-28] MEDS: Carvedilol 6.25 MG TAB PO SCH ×2 (08:29→20:29)
[2016-10-28] MEDS: Pantoprazole 40 MG GRANULES PACKET PO SCH (08:29)
[2016-10-28] MEDS: Ascorbic Acid 500 mg Chewable Tablet PO SCH ×2 (08:29→20:29)
[2016-10-28] MEDS: Clopidogrel Bisulfate 75 MG TAB PO SCH (08:29)
[2016-10-28] MEDS: Potassium Chloride 20 MEQ TAB PO SCH (08:29)
[2016-10-28] MEDS: Lisinopril 20 MG TAB PO SCH (08:29)
[2016-10-28] MEDS: MULTIVIT PO SCH (08:30)
[2016-10-28] MEDS: FERROUS FUM PO SCH (08:30)
[2016-10-28] MEDS: MINERALS PO SCH (08:30)
[2016-10-28] MEDS: Collagenase 250 UNITS/GM Ointment 30 GM TUBE TOP SCH (08:31)
--- NOTE | 2016-10-28 08:40 | PRG ---
DATE OF SERVICE: 10/25/2016 SUBJECTIVE: The patient is lying in bed awake, visiting with family, has eaten, but does not respon d to the physician. Appears to be in no distress at rest, but has pain on any movement of her right leg. OBJECTIVE: Shows her temperature is 98.3, pulse 70, respirations 18, O2 saturation 100%, blood pres sure 119/58. LUNGS: Clear. CARDIAC: Cardiac examination shows regular rhythm. ABDOMEN: Abdomen is soft and nontender. SKIN AND EXTREMITIES: Show a large stage III to stage IV decubitus on the right heel and lateral fo ot, progressing despite wound care and IV antibiotics. ASSESSMENT: 1. Peripheral gangrene, peripheral vascular disease with ischemic ulcers progressing to gangrene in the right foot. 2. Old cerebrovascular accident with flexion contractures with tolerable intake being fed by family . 3. Recurrent anemia of unknown etiology. We will check labs in the next 1-2 days. PLAN: Discussed with family who wishes her to go to another facility after this and understands she is not improving.
--- NOTE | 2016-10-28 08:48 | PRG ---
DATE OF SERVICE: 10/27/2016 SUBJECTIVE: The patient lying in bed resting. No complaints, but is still nonverbal to the physici an. She appears to be in no distress according to the nurses. OBJECTIVE: Shows her hemoglobin is down to 7.5, hematocrit 25, white count 4600, sed rate 67, sodiu m 147, potassium 3.4, chloride 121, bicarbonate is 18, BUN 15, creatinine 0.99. C-reactive protein 6.81. VITAL SIGNS: Vital signs show her to have blood pressure of 145/68, O2 sats 96%, respirations 18, p ulse 70, afebrile. Arterial ischemic ulcers on his foot appear to be progressing over the weekend, increasing in size, particularly in the calcaneus, but with no odor and no evidence of super colonized infection. ASSESSMENT: 1. Progressive arterial insufficiency ulcers secondary to severe peripheral vascular disease. 2. Stable cerebrovascular accident. 3. Hypertension, stable. 4. Nutrition recurring and increasing anemia, possibly in need of transfusion in the future. PLAN: 1. Have Case Management refer to Edi Garcia at patient's request, family's request. 2. Continue wound care. 3. Continue antibiotics. All the wounds appear to be worsening. 4. Continue family to provide nutrition. 5. Possibly transfuse in the next 1-2 days.
--- NOTE | 2016-10-28 08:51 | PRG ---
DATE OF SERVICE: 10/28/2016 SUBJECTIVE: The patient is lying in bed asleep, appears to be resting comfortably. Family not in t he room. OBJECTIVE: Temperature is 95.7, pulse 65, respirations 16, O2 saturation is 97%, blood pressure 122 /58. LUNGS: Lungs are clear. CARDIAC: Cardiac examination shows regular rhythm. EXTREMITIES: The patient's wounds noted to show progressive worsening arterial insufficiency ulcers . ASSESSMENT: Increasing arterial insufficiency ulcers, severe peripheral vascular disease. No evide nce of increased infection on IV antibiotics. PLAN: Repeat CBC to determine if need transfusion. Follow up with Case Management referral to Eliezer Garcia. Continue antibiotics, but has received now 1 week of IV antibiotics.
[2016-10-28 10:43] LABS: Hemoglobin 8.3 g/dL (12.0-16.0); Platelet Count 179 thou/uL (130-400)
[2016-10-28] MEDS: Atorvastatin Calcium 20 MG TAB PO SCH (20:29)
[2016-10-28] MEDS: traMADol HCl 50 MG TAB PO PRN (20:30)
[2016-10-29 01:20] LABS: Vancomycin, Trough 21.7 ug/mL
[2016-10-29] MEDS: Vancomycin HCl 500 MG in Sodium Chloride 0.9% 100 ML IVPB SCH (08:00)
[2016-10-29] MEDS: Potassium Chloride 20 MEQ TAB PO SCH (08:00)
[2016-10-29] MEDS: FERROUS FUM PO SCH (09:00)
[2016-10-29] MEDS: Clopidogrel Bisulfate 75 MG TAB PO SCH (09:00)
[2016-10-29] MEDS: Pantoprazole 40 MG GRANULES PACKET PO SCH (09:00)
[2016-10-29] MEDS: MULTIVIT PO SCH (09:00)
[2016-10-29] MEDS: Carvedilol 6.25 MG TAB PO SCH ×2 (09:00→21:31)
[2016-10-29] MEDS: Ascorbic Acid 500 mg Chewable Tablet PO SCH ×2 (09:00→21:31)
[2016-10-29] MEDS: MINERALS PO SCH (09:00)
[2016-10-29] MEDS: Lisinopril 20 MG TAB PO SCH (09:00)
[2016-10-29] MEDS: Collagenase 250 UNITS/GM Ointment 30 GM TUBE TOP SCH (09:42)
[2016-10-29] MEDS: HYDROcodone/Acetaminophen 7.5/325 mg Tablet PO PRN (10:27)
[2016-10-29] MEDS: Atorvastatin Calcium 20 MG TAB PO SCH (21:31)
[2016-10-30] MEDS: Potassium Chloride 20 MEQ TAB PO SCH (08:14)
[2016-10-30] MEDS: Vancomycin HCl 500 MG in Sodium Chloride 0.9% 100 ML IVPB SCH (08:14)
[2016-10-30] MEDS: Carvedilol 6.25 MG TAB PO SCH ×2 (08:53→21:01)
[2016-10-30] MEDS: Ascorbic Acid 500 mg Chewable Tablet PO SCH ×2 (08:57→21:01)
[2016-10-30] MEDS: Clopidogrel Bisulfate 75 MG TAB PO SCH (08:57)
[2016-10-30] MEDS: Lisinopril 20 MG TAB PO SCH (08:57)
[2016-10-30] MEDS: Pantoprazole 40 MG GRANULES PACKET PO SCH (08:58)
[2016-10-30] MEDS: MULTIVIT PO SCH (08:59)
[2016-10-30] MEDS: FERROUS FUM PO SCH (08:59)
[2016-10-30] MEDS: MINERALS PO SCH (08:59)
[2016-10-30] MEDS: HYDROcodone/Acetaminophen 7.5/325 mg Tablet PO PRN (09:15)
[2016-10-30] MEDS: Collagenase 250 UNITS/GM Ointment 30 GM TUBE TOP SCH (10:30)
[2016-10-30] MEDS: traMADol HCl 50 MG TAB PO PRN (20:59)
[2016-10-30] MEDS: Atorvastatin Calcium 20 MG TAB PO SCH (21:01)
[2016-10-31] MEDS: Vancomycin HCl 500 MG in Sodium Chloride 0.9% 100 ML IVPB SCH (08:28)
[2016-10-31] MEDS: Ascorbic Acid 500 mg Chewable Tablet PO SCH ×2 (08:30→17:02)
[2016-10-31] MEDS: Clopidogrel Bisulfate 75 MG TAB PO SCH (08:30)
[2016-10-31] MEDS: Lisinopril 20 MG TAB PO SCH (08:31)
[2016-10-31] MEDS: Carvedilol 6.25 MG TAB PO SCH ×2 (08:31→20:46)
[2016-10-31] MEDS: Potassium Chloride 20 MEQ TAB PO SCH (08:32)
[2016-10-31] MEDS: FERROUS FUM PO SCH (08:33)
[2016-10-31] MEDS: MINERALS PO SCH (08:33)
[2016-10-31] MEDS: MULTIVIT PO SCH (08:33)
[2016-10-31] MEDS: Pantoprazole 40 MG GRANULES PACKET PO SCH (08:36)
[2016-10-31] MEDS: Collagenase 250 UNITS/GM Ointment 30 GM TUBE TOP SCH (10:14)
[2016-10-31] MEDS: HYDROcodone/Acetaminophen 5/325 mg Tablet PO PRN ×2 (13:12→20:44)
[2016-10-31] MEDS: Atorvastatin Calcium 20 MG TAB PO SCH (20:46)
[2016-11-01] MEDS: Vancomycin HCl 500 MG in Sodium Chloride 0.9% 100 ML IVPB SCH (08:47)
[2016-11-01] MEDS: Pantoprazole 40 MG GRANULES PACKET PO SCH (08:48)
[2016-11-01] MEDS: Ascorbic Acid 500 mg Chewable Tablet PO SCH ×2 (08:49→17:15)
[2016-11-01] MEDS: Carvedilol 6.25 MG TAB PO SCH ×2 (08:49→20:49)
[2016-11-01] MEDS: Clopidogrel Bisulfate 75 MG TAB PO SCH (08:49)
[2016-11-01] MEDS: Lisinopril 20 MG TAB PO SCH (08:49)
[2016-11-01] MEDS: Potassium Chloride 10 MEQ TAB PO SCH (08:49)
[2016-11-01] MEDS: MINERALS PO SCH (12:35)
[2016-11-01] MEDS: FERROUS FUM PO SCH (12:35)
[2016-11-01] MEDS: MULTIVIT PO SCH (12:35)
[2016-11-01] MEDS: Collagenase 250 UNITS/GM Ointment 30 GM TUBE TOP SCH (12:35)
[2016-11-01] MEDS: HYDROcodone/Acetaminophen 5/325 mg Tablet PO PRN (15:41)
[2016-11-01] MEDS: Atorvastatin Calcium 20 MG TAB PO SCH (20:49)
[2016-11-02] MEDS: Vancomycin HCl 500 MG in Sodium Chloride 0.9% 100 ML IVPB SCH (08:46)
[2016-11-02] MEDS: Potassium Chloride 10 MEQ TAB PO SCH (08:47)
[2016-11-02] MEDS: Clopidogrel Bisulfate 75 MG TAB PO SCH (08:47)
[2016-11-02] MEDS: Lisinopril 20 MG TAB PO SCH (08:47)
[2016-11-02] MEDS: MULTIVIT PO SCH (08:48)
[2016-11-02] MEDS: Collagenase 250 UNITS/GM Ointment 30 GM TUBE TOP SCH (08:48)
[2016-11-02] MEDS: MINERALS PO SCH (08:48)
[2016-11-02] MEDS: Carvedilol 6.25 MG TAB PO SCH ×2 (08:48→21:51)
[2016-11-02] MEDS: Pantoprazole 40 MG GRANULES PACKET PO SCH (08:48)
[2016-11-02] MEDS: FERROUS FUM PO SCH (08:48)
[2016-11-02] MEDS: Ascorbic Acid 500 mg Chewable Tablet PO SCH ×2 (08:48→17:26)
--- NOTE | 2016-11-02 12:14 | PRG ---
DATE OF SERVICE: 11/02/2016 SUBJECTIVE: Ms. Collado is a very pleasant 89-year-old very unfortunate black female with significan t severe arterial ischemia and insufficiency mainly into her right leg with resultant ischemic arter ial ulcers. Unfortunately, the CT angio revealed diffuse disease and she was not a candidate for re vascularization. Her only real option is amputation, but the family has refused that. She was vega sferred to [facility] for wound care and antibiotics. She has very poor appetite an d most likely is terminal. Dr. Brown is following also for her diabetes type 2 and hypertension. The patient is eating slowly, being fed by the nurse today. She has no complaints. OBJECTIVE: VITAL SIGNS: Today reveal blood pressure 118/59, pulse 73, respirations 20, O2 sat 93% on room air and temperature is 96.8. GENERAL: This is an elderly black female in no apparent distress at this time. HEENT: Reveals normocephalic and nontraumatic cranium. Nose and throat are somewhat dry. NECK: Supple, without masses, nodes or bruits. CHEST: Clear to auscultation. No rales, rhonchi or wheezes are heard. HEART: Reveals a regular rate and rhythm without murmurs, gallops or rubs. ABDOMEN: Soft and nontender, without organomegaly. Normal bowel sounds are noted. GENITOURINARY: Deferred. EXTREMITIES: Reveal continued worsening arterial insufficiency ulcers. LABORATORY DATA: No labs were done today. IMPRESSION: 1. Increasing arterial insufficiency ulcers. 2. Severe peripheral vascular disease. 3. Hypertension. 4. Old stroke. 5. Diabetes type 2. 6. Cerebral insufficiency. 7. Poor prognosis. PLAN: 1. Continue IV antibiotics. 2. Continue supportive care. 3. We will continue to talk with the family about her prognosis and options.
[2016-11-02] MEDS: HYDROcodone/Acetaminophen 5/325 mg Tablet PO PRN ×2 (12:29→17:26)
[2016-11-02] MEDS: Atorvastatin Calcium 20 MG TAB PO SCH (21:50)
[2016-11-02] MEDS: traMADol HCl 50 MG TAB PO PRN (21:50)
[2016-11-03 07:37] LABS: Vancomycin, Trough 18.8 ug/mL
[2016-11-03 07:40] LABS: #Eosinphils 0.1 thou/uL (0.0-0.7); #Lymphocytes 1.6 thou/uL (1.20-3.40); #Monocytes 0.4 thou/uL (0.11-0.59); #Neutrophils 2.3 thou/uL (1.40-6.50); %Basophils 0.5 % (0.0-1.0); %Eosinophils 1.9 % (0.0-10.0); %Lymphocytes 36.8 % (21.0-51.0); %Monocytes 8.5 % (0.0-10.0); %Neutrophils 52.3 % (42.0-75.0); Hemoglobin 7.4 g/dL (12.0-16.0); MDiff Complete? YES; Mean Corpuscular HGB CONC 30.2 g/dL (32.0-36.0); Mean Corpuscular Hemoglobin 23.1 pg (27.0-31.0); Mean Corpuscular Volume 76.3 fl (81.0-99.0); Mean Platelet Volume 9.5 fL (7.4-10.4); Platelet Count 67 thou/uL (130-400); RBC Distribution Width 19.8 % (11.5-14.5); Red Blood Cell (RBC) Count 3.21 mill/uL (4.20-5.40); White Blood Cell (WBC) Count 4.4 thou/uL (4.8-10.8)
[2016-11-03 07:41] LABS: Anion Gap 13 mmol/L (10-20); Anisocytosis SLIGHT = 6-15 cells (100X) (0-5/hpf); BUN (Urea Nitrogen) 18 mg/dL (9.8-20.1); Calc. Creatinine Clearance 27 mL/min (70-130); Calcium 8.6 mg/dL (7.8-10.44); Carbon Dioxide 17 mmol/L (23-31); Chloride 116 mmol/L (98-107); Estimated GFR-MDRD 64; Glucose 94 mg/dL (83-110); Hypochromia SLIGHT = 6-15 cells (100X) (0-5/hpf); Microcytosis SLIGHT = 6-15 cells (100X) (0-5/hpf); PLT Morphology Comment Appears Decreased; Platelet Clumps SLIGHT; Potassium 3.6 mmol/L (3.5-5.1); Sodium 142 mmol/L (136-145); Target Cells SLIGHT = 2-5 cells (100X) (0-1/hpf)
[2016-11-03] MEDS: Vancomycin HCl 500 MG in Sodium Chloride 0.9% 100 ML IVPB SCH (08:00)
[2016-11-03] MEDS: Potassium Chloride 10 MEQ TAB PO SCH (08:05)
[2016-11-03] MEDS: Lisinopril 20 MG TAB PO SCH (09:00)
[2016-11-03] MEDS: MINERALS PO SCH (09:00)
[2016-11-03] MEDS: Carvedilol 6.25 MG TAB PO SCH ×2 (09:00→21:52)
[2016-11-03] MEDS: FERROUS FUM PO SCH (09:00)
[2016-11-03] MEDS: Clopidogrel Bisulfate 75 MG TAB PO SCH (09:00)
[2016-11-03] MEDS: Pantoprazole 40 MG GRANULES PACKET PO SCH (09:00)
[2016-11-03] MEDS: MULTIVIT PO SCH (09:00)
[2016-11-03] MEDS: Ascorbic Acid 500 mg Chewable Tablet PO SCH ×2 (09:05→17:10)
[2016-11-03] MEDS: HYDROcodone/Acetaminophen 7.5/325 mg Tablet PO PRN (09:53)
[2016-11-03] MEDS: Collagenase 250 UNITS/GM Ointment 30 GM TUBE TOP SCH (10:01)
--- NOTE | 2016-11-03 20:38 | PRG ---
DATE OF SERVICE: 10/29/2016 SUBJECTIVE: The patient is resting well, no complaints, eating per the nurses. Pain medication be controlling her pain with wound changes. OBJECTIVE: VITAL SIGNS: Blood pressure is stable at 165/91, pulse 77, O2 sats 98%, afebrile. LUNGS: Clear. CARDIAC: Examination shows regular rhythm. ABDOMEN: Soft and nontender. EXTREMITIES: Right leg is contracted, appears to have clean arterial insufficiency wound with minim al change. ASSESSMENT: 1. Severe peripheral vascular disease with persistent insufficiency ulcers. 2. Stable hypertension. 3. Old cerebrovascular accident. 4. Stable diabetes. PLAN: Discussed with family the possibility of transfer to the [facility] in the next week.
--- NOTE | 2016-11-03 21:18 | PRG ---
DATE OF PROGRESS NOTE: 10/30/2016 SUBJECTIVE: The patient feels well, no change. I discussed the case with her niece and nephew in [facility] room who states that they wished her to be transferred or evaluated to transfer to [facility]. OBJECTIVE: Shows her vancomycin trough is slightly supratherapeutic at 21.7. Vital signs show bloo d pressure of 160/70, pulse is 63, respirations 16, O2 sats 97%, afebrile. Lungs are clear. Cardia c examination shows regular rhythm. Skin and extremities shows normal skin turgor. ASSESSMENT: Resolving superinfection on arterial ulcers, persistent severe PVD and minimally improv ing ulcer, stable vancomycin levels, we will repeat in 2 days. PLAN: Repeat vancomycin level in 2 days. Continue vancomycin at a dose of 500 mg daily. Discuss ijeoma rider to [facility] with showcase trimmer.
--- NOTE | 2016-11-03 21:26 | PRG ---
DATE OF SERVICE: 10/31/2016 SUBJECTIVE: Patient feels well, visiting with niece, eating much better who has no complaints and s tates her pain appears to be improved with the medication. Discussed with showcase maker who will dis cuss with Edi Garcia about acceptance next week. OBJECTIVE: Feels her blood pressure is 118/59, O2 sat is 98%, respirations 18, pulse is 70, afebril e. Laboratory today shows random vancomycin level of 20. Foot is bandaged, but appears to be clean and dry. Stable ulcers. Absent pedal pulses. Lungs clear. Cardiac examination shows regular rhy thm. ASSESSMENT: Severe peripheral vascular disease with persistent arterial ulcer, but resolving. Supe rimposed methicillin-resistant Staphylococcus aureus colonization and Escherichia coli colonization. PLAN: Discuss transfer to shelter next week. Finish 10-day course of vancomycin.
--- NOTE | 2016-11-03 21:31 | PRG ---
DATE OF SERVICE: 11/01/2016 SUBJECTIVE: Patient is lying in bed resting with no complaints. He has been eating well. Family h as no complaints. OBJECTIVE: Shows temperature is 96.1, pulse 59, respirations 18, O2 sats 96% on room air, blood p ressure 118/56. Lungs are clear. Cardiac examination shows regular rhythm. Abdomen is soft and no ntender. ASSESSMENT: Stable severe peripheral vascular disease with improving Staph infection or superimpose d arterial ulcer, which are minimally improving. PLAN: Continue vancomycin until next week. Await results of referral to Edi Garcia next week.
--- NOTE | 2016-11-03 21:34 | PRG ---
DATE OF SERVICE: 11/03/2016 SUBJECTIVE: Nurse states at the senior living had received the referral and appears to be willing to accept the patient, but has not been confirmed. Patient is feeling well with no complaints. At th is time, eating well. Appears to be in no distress. OBJECTIVE: Vital signs showed to have blood pressure 125/65, pulse 65, temperature 96.8, O2 sats 97 %. Lungs are clear. Cardiac examination shows regular rhythm. Abdomen is soft, nontender. Vancom ycin trough therapeutic at 18.8. Wounds appear to be clean. ASSESSMENT: Persistent arterial insufficiency ulcers appears to be stable with resolved Staph super infection, stable cerebrovascular accident. PLAN: Discontinue vancomycin tomorrow, transferred to [facility] for continued wound care.
[2016-11-03] MEDS: HYDROcodone/Acetaminophen 5/325 mg Tablet PO PRN (21:51)
[2016-11-03] MEDS: Atorvastatin Calcium 20 MG TAB PO SCH (21:52)
[2016-11-04 07:17] VITALS: BP 117/58; TEMP 95.6
[2016-11-04] MEDS: Vancomycin HCl 500 MG in Sodium Chloride 0.9% 100 ML IVPB SCH (07:54)
[2016-11-04] MEDS: Potassium Chloride 10 MEQ TAB PO SCH (07:56)
[2016-11-04] MEDS: Ascorbic Acid 500 mg Chewable Tablet PO SCH ×2 (07:56→17:00)
[2016-11-04] MEDS: MULTIVIT PO SCH (09:00)
[2016-11-04] MEDS: MINERALS PO SCH (09:00)
[2016-11-04] MEDS: Lisinopril 20 MG TAB PO SCH (09:00)
[2016-11-04] MEDS: Carvedilol 6.25 MG TAB PO SCH (09:00)
[2016-11-04] MEDS: Clopidogrel Bisulfate 75 MG TAB PO SCH (09:00)
[2016-11-04] MEDS: Pantoprazole 40 MG GRANULES PACKET PO SCH (09:00)
[2016-11-04] MEDS: FERROUS FUM PO SCH (09:00)
[2016-11-04] MEDS: Collagenase 250 UNITS/GM Ointment 30 GM TUBE TOP SCH (14:32)
[2016-11-04] MEDS: HYDROcodone/Acetaminophen 7.5/325 mg Tablet PO PRN (14:33)
--- NOTE | 2016-11-04 14:47 | DIS ---
DATE OF ADMISSION: 10/20/2016 DATE OF DISCHARGE: [facility] on 11/04/2016. FINAL DIAGNOSES: 1. Severe peripheral vascular disease at the right leg with arterial insufficiency ulcers of the ri ght foot. 2. Superimposed infection with Staph and E. coli treated with vancomycin and Bactrim for 2 weeks wi clean wound. 3. Old cerebrovascular accident with altered mental status and difficulty swallowing. 4. Recurrent aspiration, decreased oral intake with risk of aspiration with the family refusing PEG tube. 5. Recurrent anemia, unknown etiology. The family has refused colonoscopy with recurrent need for transfusion. HOSPITAL COURSE: The patient is an unfortunate 89-year-old black female with a history of severe PV D, documented on CT angio showing obstruction from the femoral artery down to the ankle whose family has refused [id number] amputation and has had subsequent poorly healing arterial ulcers of the right lateral foot. These have been evaluated by Vascular Surgery and recommended [id number] am putation. The patient has refused and was admitted to the SNF for IV antibiotics. It appears to marie ve improved with the superimposed infection with Staph and E. Coli, has clean wound with Santyl, but still not healing well, and has received 2 weeks of antibiotics and stable to be discharged from [facility]. The family wishes to continue the wound care at [facility] to be con tinued on Santyl and wound care dressing and also be continued on Bactrim-DS twice daily for possibl e superimposed Staph infection. Her prognosis is very poor. The family understands this and did no t wish any surgery. She is not to be resuscitation.
== END 2016-11-04 18:08 | DRG 300 ==
LOC: NAV ACUTE 15:33
PROVIDERS: ADMIT Internal Medicine; ATTEND Internal Medicine
DX: E11.52 Type 2 diabetes mellitus with diabetic peripheral angiopathy with gangrene (principal); L97.919 Non-pressure chronic ulcer of unspecified part of right lower leg with unspecified severity; N17.9 Acute kidney failure, unspecified; E11.622 Type 2 diabetes mellitus with other skin ulcer; E11.22 Type 2 diabetes mellitus with diabetic chronic kidney disease; R13.10 Dysphagia, unspecified; Z88.0 Allergy status to penicillin; B95.62 Methicillin resistant Staphylococcus aureus infection as the cause of diseases classified elsewhere; B96.20 Unspecified Escherichia coli [E. coli] as the cause of diseases classified elsewhere; Z66 Do not resuscitate; E87.6 Hypokalemia; D64.9 Anemia, unspecified; I12.9 Hypertensive chronic kidney disease with stage 1 through stage 4 chronic kidney disease, or unspecified chronic kidney disease; N18.9 Chronic kidney disease, unspecified; I69.391 Dysphagia following cerebral infarction
CPT/HCPCS: 36415; 36416; 80048; 80202; 85007; 85014; 85018; 85025; 85027; 85049; 85652; 86140; A4216; C1751; G8981-GP-CN; G8982-GP-CN; G8983-GP-CN; J3370; J7050; J7620

== ENCOUNTER 2016-12-13 11:16 | Inpatient (IN) | payer MEDICARE, OTHER ==
[2016-12-13 12:16] LABS: Bilirubin Negative (Negative); Blood, Urine Large (Negative); Clarity Turbid (Clear); Glucose, Urine (Dipstick) Negative (Negative); Leukocyte Large (Negative); Nitrite Negative (Negative); Protein, Urine (Dipstick) 100 mg/dL (Neg-Trace); Urobilinogen 0.2 mg/dL (0.2-1.0); pH, Urine 5.5 (5.0-9.0)
[2016-12-13 12:28] LABS: Bacteria/HPF 2+ HPF (None Seen); Squamous Epithelial 0-3 HPF (0-3)
[2016-12-13 12:43] LABS: #Basophils 0.1 thou/uL (0.0-0.2); #Lymphocytes 0.8 thou/uL (1.20-3.40); #Monocytes 0.4 thou/uL (0.11-0.59); #Neutrophils 5.5 thou/uL (1.40-6.50); %Basophils 0.7 % (0.0-1.0); %Eosinophils 0.3 % (0.0-10.0); %Monocytes 6.3 % (0.0-10.0); %Neutrophils 80.6 % (42.0-75.0); Hemoglobin 6.6 g/dL (12.0-16.0); Mean Corpuscular Hemoglobin 23.8 pg (27.0-31.0); Mean Corpuscular Volume 81.9 fl (81.0-99.0); Mean Platelet Volume 6.6 fL (7.4-10.4); Platelet Count 261 thou/uL (130-400); RBC Distribution Width 20.6 % (11.5-14.5); Red Blood Cell (RBC) Count 2.76 mill/uL (4.20-5.40); White Blood Cell (WBC) Count 6.8 thou/uL (4.8-10.8)
[2016-12-13] MEDS ORDERED: Levofloxacin 500 mg/D5W 100 ml Premix Bag ONE (12:56)
[2016-12-13] MEDS ORDERED: Sodium Chloride 0.9% 1,000 ML ONE (12:56)
[2016-12-13 13:01] LABS: ALT (SGPT) 12 U/L (8-55); AST (SGOT) 14 U/L (5-34); Albumin 2.7 g/dL (3.4-4.8); Alkaline Phosphatase 74 U/L (40-150); Anion Gap 18 mmol/L (10-20); BUN (Urea Nitrogen) 71 mg/dL (9.8-20.1); Bilirubin, Total 0.3 mg/dL (0.2-1.2); Calc. Creatinine Clearance 0 mL/min (70-130); Calcium 9.6 mg/dL (7.8-10.44); Carbon Dioxide 16 mmol/L (23-31); Chloride 113 mmol/L (98-107); Estimated GFR-MDRD 22; Globulin 4.1 g/dL (2.4-3.5); Glucose 98 mg/dL (83-110); Lipase 14 U/L (8-78); Potassium 5.4 mmol/L (3.5-5.1); Protein, Total 6.8 g/dL (6.0-8.3); Sodium 142 mmol/L (136-145)
[2016-12-13 13:02] LABS: Troponin I 0.021 ng/mL (< 0.028)
[2016-12-13 13:28] LABS: Helmet Cells SLIGHT = 2-5 cells (100X) (0-1/hpf); Hypochromia SLIGHT = 6-15 cells (100X) (0-5/hpf); MDiff Complete? YES; Ovalocytes MODERATE= 6-15 cells (100X) (0-1/hpf); PLT Morphology Comment Appears Adequate; Poikilocytosis MODERATE=16-30 cells (100X) (0-5/hpf); Tear Drops SLIGHT = 2-5 cells (100X) (0-1/hpf)
--- NOTE | 2016-12-13 14:55 | RAD ---
RADIOGRAPH CHEST 1 VIEW: Date: 12/13/16 Time: 1209 HOURS COMPARISON: 10/14/16. HISTORY: 89 year old female with weakness and anorexia. FINDINGS: With the interval resolution of the left perihilar mild air space densities, a 2.5 cm round pulmonar y mass is now revealed, with irregular margins. The previously described right perihilar density rem ains. It could represent scar or subsegmental atelectasis, although neoplasm cannot be excluded. Aga in noted is the cardiomegaly and ectasia of the thoracic aorta. No pulmonary edema. No evidence of l arge pleural effusion. No pneumothorax. No consolidation. IMPRESSION: 1. A 2.5 cm mass overlying the left mid lung field could represent pulmonary neoplasm. CT of the ch est may be useful. 2. Questionable right perihilar density. 3. Cardiomegaly. 4. No consolidation or pulmonary edema. NACHO [] POS: GUANACO
[2016-12-13] MEDS ORDERED: Ondansetron HCl/PF 4 MG/2 ML Vial IVP PRN ×2 (17:29→17:31)
[2016-12-13] MEDS ORDERED: Acetaminophen 650 MG Suppository PR PRN (17:31)
[2016-12-13] MEDS ORDERED: cefTRIAXone\\ROCEPHIN 2 GM in Sodium Chloride 0.9% 100 ML IVPB SCH (18:00)
[2016-12-13 18:47] VITALS: BMI 15.1
[2016-12-13] MEDS: Sodium Chloride 0.9% 1,000 ML IV SCH ×2 (21:30→21:31)
[2016-12-14] MEDS: Sodium Chloride 0.9% 1,000 ML IV SCH ×4 (00:01→17:27)
[2016-12-14 06:00] LABS: Anion Gap 17 mmol/L (10-20); BUN (Urea Nitrogen) 58 mg/dL (9.8-20.1); Calc. Creatinine Clearance 13 mL/min (70-130); Calcium 9.3 mg/dL (7.8-10.44); Estimated GFR-MDRD 28; Sodium 145 mmol/L (136-145)
[2016-12-14 06:04] LABS: Carbon Dioxide 14 mmol/L (23-31); Chloride 119 mmol/L (98-107); Glucose 76 mg/dL (83-110)
[2016-12-14 06:08] LABS: #Basophils 0.1 thou/uL (0.0-0.2); #Lymphocytes 0.7 thou/uL (1.20-3.40); #Monocytes 0.5 thou/uL (0.11-0.59); #Neutrophils 6.5 thou/uL (1.40-6.50); %Basophils 0.7 % (0.0-1.0); %Eosinophils 0.3 % (0.0-10.0); %Lymphocytes 8.7 % (21.0-51.0); %Neutrophils 84.3 % (42.0-75.0); Anisocytosis SLIGHT = 6-15 cells (100X) (0-5/hpf); Hemoglobin 9.6 g/dL (12.0-16.0); MDiff Complete? YES; Mean Corpuscular HGB CONC 30.5 g/dL (32.0-36.0); Mean Corpuscular Hemoglobin 25.8 pg (27.0-31.0); Mean Corpuscular Volume 84.6 fl (81.0-99.0); Mean Platelet Volume 6.4 fL (7.4-10.4); Ovalocytes SLIGHT = 2-5 cells (100X) (0-1/hpf); PLT Morphology Comment Appears Adequate; Platelet Count 224 thou/uL (130-400); RBC Distribution Width 18.7 % (11.5-14.5); Red Blood Cell (RBC) Count 3.73 mill/uL (4.20-5.40); White Blood Cell (WBC) Count 7.7 thou/uL (4.8-10.8)
[2016-12-14] MEDS ORDERED: cefTRIAXone\\ROCEPHIN 1 GM in Sodium Chloride 0.9% 100 ML IVPB SCH (06:45)
--- NOTE | 2016-12-14 12:05 | HP ---
DATE OF ADMISSION: 12/13/2016 CHIEF COMPLAINT: Altered mental status, acute on chronic renal failure, urinary tract infection, re current severe anemia. HISTORY OF PRESENT ILLNESS: The patient is an 89-year-old black female well known to myself and an unfortunate lady with severe peripheral vascular disease with cerebrovascular insufficiency and old stroke and also severe insufficiency of both legs with poorly healing arterial ulcers on her right l ower leg. She has been seen by vascular surgeons and by wound care and it is felt that her wounds w ill not heal and were just being treated symptomatically. She also because of her stroke has had di fficulty swallowing and taking in liquids, but the family has refused PEG tube and despite recurrent aspiration with a recent aspiration pneumonia, and finally she has a history of recurrent anemia wi th guaiac positive stools, but again the family has refused further evaluation, but has agreed to tr ansfusion. She presents to the emergency room this time with decreased mental status and was found to have significant anemia with hemoglobin down to 6.6, hematocrit 22, white count 6800. She was al so found to have grossly infected urine, did not appear to be septic, as her lactate level was bryan l. White count was also normal and not low, but did have a shift to the left with 80% neutrophils. She also was found as mentioned above to be significantly dehydrated with acute renal failure with a BUN of 71, creatinine 2.45 as compared to a creatinine of 0.99 six weeks ago. She was therefore a dmitted for IV fluids, blood transfusion and antibiotics per the family's request, fully understandi ng that no further evaluation will be done and she will be treated only symptomatically. She is not to be resuscitated. PAST MEDICAL HISTORY: Remarkable for the above-mentioned distant old stroke and problems with expre ssive aphasia and contractures. Medical history is positive for a distant history of hypertension, type 2 diabetes. PAST SURGICAL HISTORY: Positive for open reduction and internal fixation or right hip. CURRENT MEDICATIONS: At this time include Tylenol as needed, aspirin 81 daily, carvedilol 6.25 twic e daily, Plavix 75 daily. REVIEW OF SYSTEMS: Unobtainable. PHYSICAL EXAMINATION: GENERAL: The patient is an elderly black female lying in bed, awake, but less responsive, does not respond to questions, but does open eyes. VITAL SIGNS: Show her to have blood pressure of 145/69, respirations 16, temperature 97, O2 sat is 99%. HEENT: Pupils are equal, round, and react to light and accommodation. Sclerae are anicteric. Conj unctivae pale. Oral mucous membranes dehydrated. NECK: Supple, no nodes or masses. JVP is not elevated. LUNGS: Clear with good breath sounds. CARDIAC: Regular rhythm, S4, no other gallops or murmurs. ABDOMEN: Soft, nontender with no masses or organomegaly. SKIN/EXTREMITIES: Show significant contractures of the legs with right leg wrapped with minimal fou l smell and clean arterial ulcers on the lateral aspect of the right foot, stage 2-3 unstageable ulc er. LABORATORY DATA: As above. White count 6800, hematocrit 22, hemoglobin 6.6, 80% segs. Sodium is 1 42, potassium 5.4, chloride 113, bicarbonate 16, BUN 71, creatinine 2.4, glucose 98, troponin 0.021. Urinalysis shows greater than 50 white cells, 11-20 red cells. ASSESSMENT AND PLAN: 1. Acute renal failure most likely due to dehydration as patient has poor oral intake. The family refuses PEG tube. 2. Urinary tract infection, possibly causing decreased oral intake and worsening renal failure with no evidence of sepsis. 3. Recurrent anemia of unknown etiology as the patient refused evaluation, but will plan and transf use 2 units of packed cells at family's request, started on IV of normal saline at 125 an hour, give Rocephin 2 grams IV now and then start 1 gram IV daily. Obtain urine culture.
[2016-12-14] MEDS ORDERED: Bisacodyl 10 MG SUPP PR PRN (16:07)
[2016-12-14] MEDS ORDERED: Acetaminophen 325 MG TAB PO PRN (16:07)
[2016-12-14] MEDS ORDERED: traMADol HCl 50 MG TAB PO PRN (16:07)
[2016-12-14] MEDS ORDERED: Milk Of Magnesia 30 ML UDCUP PO PRN (16:07)
[2016-12-14] MEDS ORDERED: Loperamide HCl 2 MG CAP PO PRN (16:14)
[2016-12-14] MEDS: SMX/TMP 800-160mg/20 ML UDCUP PO SCH (17:11)
[2016-12-14] MEDS: HYDROcodone/Acetaminophen 5/325 mg Tablet PO PRN (17:28)
[2016-12-14] MEDS: cefTRIAXone\\ROCEPHIN 1 GM in Sodium Chloride 0.9% 100 ML IVPB SCH (21:43)
[2016-12-14] MEDS: Ascorbic Acid 500 mg Chewable Tablet PO SCH (21:46)
[2016-12-14] MEDS: Carvedilol 6.25 MG TAB PO SCH (21:46)
[2016-12-14] MEDS: Atorvastatin Calcium 20 MG TAB PO SCH (21:46)
[2016-12-15] MEDS: Sodium Chloride 0.9% 1,000 ML IV SCH ×2 (02:07→10:08)
[2016-12-15 05:56] LABS: Anion Gap 15 mmol/L (10-20); BUN (Urea Nitrogen) 45 mg/dL (9.8-20.1); Calc. Creatinine Clearance 13 mL/min (70-130); Calcium 8.7 mg/dL (7.8-10.44); Carbon Dioxide 13 mmol/L (23-31); Chloride 124 mmol/L (98-107); Estimated GFR-MDRD 30; Glucose 87 mg/dL (83-110); Potassium 4.5 mmol/L (3.5-5.1); Sodium 147 mmol/L (136-145)
[2016-12-15] MEDS: Carvedilol 6.25 MG TAB PO SCH ×2 (09:03→20:25)
[2016-12-15] MEDS: Ascorbic Acid 500 mg Chewable Tablet PO SCH ×2 (09:03→20:24)
[2016-12-15] MEDS: Clopidogrel Bisulfate 75 MG TAB PO SCH (09:03)
[2016-12-15] MEDS: Hydrochlorothiazide 25 MG TAB PO SCH (09:04)
[2016-12-15] MEDS: Pantoprazole 40 MG GRANULES PACKET PO SCH (09:04)
[2016-12-15] MEDS: Lisinopril 20 MG TAB PO SCH (09:04)
[2016-12-15] MEDS: HYDROcodone/Acetaminophen 7.5/325 mg Tablet PO PRN ×2 (09:04→17:05)
[2016-12-15] MEDS: Collagenase 250 UNITS/GM Ointment 30 GM TUBE TOP SCH (09:12)
[2016-12-15] MEDS: MULTIVIT PO SCH (10:08)
[2016-12-15] MEDS: MINERALS PO SCH (10:08)
[2016-12-15] MEDS: FERROUS FUM PO SCH (10:08)
[2016-12-15] MEDS: Dextrose 5 %-0.45 % NaCl 1,000 ML IV SCH ×2 (14:43→20:30)
[2016-12-15] MEDS: SMX/TMP 800-160mg/20 ML UDCUP PO SCH (17:05)
[2016-12-15] MEDS: Atorvastatin Calcium 20 MG TAB PO SCH (20:25)
[2016-12-15] MEDS: cefTRIAXone\\ROCEPHIN 1 GM in Sodium Chloride 0.9% 100 ML IVPB SCH (20:26)
[2016-12-15 20:38] VITALS: TEMP 98.9
[2016-12-16] MEDS: Dextrose 5 %-0.45 % NaCl 1,000 ML IV SCH (02:41)
[2016-12-16] MEDS: Ascorbic Acid 500 mg Chewable Tablet PO SCH (08:01)
[2016-12-16] MEDS: Hydrochlorothiazide 25 MG TAB PO SCH (08:01)
[2016-12-16] MEDS: Pantoprazole 40 MG GRANULES PACKET PO SCH (08:02)
[2016-12-16] MEDS: Carvedilol 6.25 MG TAB PO SCH (08:02)
[2016-12-16] MEDS: Clopidogrel Bisulfate 75 MG TAB PO SCH (08:02)
[2016-12-16] MEDS: Lisinopril 20 MG TAB PO SCH (08:02)
[2016-12-16] MEDS: MULTIVIT PO SCH (08:03)
[2016-12-16] MEDS: FERROUS FUM PO SCH (08:03)
[2016-12-16] MEDS: Collagenase 250 UNITS/GM Ointment 30 GM TUBE TOP SCH (08:03)
[2016-12-16] MEDS: MINERALS PO SCH (08:03)
[2016-12-16 08:04] VITALS: BP 154/92
[2016-12-16] MEDS: HYDROcodone/Acetaminophen 5/325 mg Tablet PO PRN (12:38)
[2016-12-16] MEDS ORDERED: Carvedilol 6.25 MG TAB PO SCH (17:00)
== END 2016-12-16 12:15 | DRG 683 ==
LOC: NAV ERS 11:16 → NAV ACUTE 17:23
PROVIDERS: ADMIT Internal Medicine; ATTEND Internal Medicine
PROC: 30233N1 Transfusion of Nonautologous Red Blood Cells into Peripheral Vein, Percutaneous Approach (ICD-10-PCS; principal; 2016-12-13)
DX: N17.9 Acute kidney failure, unspecified (principal); N39.0 Urinary tract infection, site not specified; L89.150 Pressure ulcer of sacral region, unstageable; L89.210 Pressure ulcer of right hip, unstageable; E11.621 Type 2 diabetes mellitus with foot ulcer; E11.51 Type 2 diabetes mellitus with diabetic peripheral angiopathy without gangrene; L89.229 Pressure ulcer of left hip, unspecified stage; R13.10 Dysphagia, unspecified; L89.619 Pressure ulcer of right heel, unspecified stage; Z68.1 Body mass index [BMI] 19.9 or less, adult; E86.0 Dehydration; L97.511 Non-pressure chronic ulcer of other part of right foot limited to breakdown of skin; I69.391 Dysphagia following cerebral infarction; R63.0 Anorexia; R41.82 Altered mental status, unspecified; D64.9 Anemia, unspecified; I12.9 Hypertensive chronic kidney disease with stage 1 through stage 4 chronic kidney disease, or unspecified chronic kidney disease; N18.9 Chronic kidney disease, unspecified; I69.320 Aphasia following cerebral infarction; M24.50 Contracture, unspecified joint; Z66 Do not resuscitate; Z79.02 Long term (current) use of antithrombotics/antiplatelets; Z79.82 Long term (current) use of aspirin
CPT/HCPCS: 36415; 36430; 51702; 71010; 80048; 80053; 81003; 81015; 82553; 83605; 83690; 84484; 85025; 86850; 86900; 86901; 87040; 87070; 87077; 87086; 87186; 87205; 93005; 94640; 96361; 96365; A4216; J0696; J1956; J7042; J7050; J7620; P9016